=== PATIENT | female | born 1950 | race Caucasian/White ===

== ENCOUNTER → 2023-11-17 11:22 | Outpatient (REF) | payer MEDICARE, OTHER, SELFPAY | LOC: HWRAD 11:22 | PROVIDERS: ATTENDING PHYSICIAN Family Medicine | DX: Z78.0 Asymptomatic menopausal state (principal); Z12.31 Encounter for screening mammogram for malignant neoplasm of breast | CPT/HCPCS: 77063; 77067; 77080 ==

== ENCOUNTER 2024-03-13 14:27 | Inpatient (IN) | payer MEDICARE, OTHER, SELFPAY ==
[2024-03-13 08:51] VITALS: BP 113/83
--- NOTE | 2024-03-13 10:09 | ED.GENMED ---
History of Present Illness
General
Chief Complaint: Abdominal Symptoms
Source: patient and spouse
Exam Limitations: none
Time Seen by Provider: 03/13/24 09:33
Nursing documentation reviewed up to this point in time: agreed with
History of Present Illness
History of Present Illness:
73-year-old female presenting with concerns of nausea vomiting abdominal distention over the past 4 days. No diarrhea. Has been taking Zofran without relief. Tried enema to help with bowel movement which also did not help denies any chest pain
shortness of breath or fevers.
Past History
Past History
ED Past Medical History: Other (Allergies)
ED Past Surgical History: Cholecystectomy and Gynecological
Social History
Tobacco: Non-smoker
Alcohol: Occasional
Drug: None
Personal:
Living: with family
Review of Systems
Review of Systems
Allergies reviewed?: Yes
All Other Systems: ROS reviewed and negative except as documented in HPI and ROS
Phy Exam
Physical Exam
Physical Exam:
GENERAL: Alert , in no apparent distress
EYE: pupils equal and reactive
NECK: Supple, no significant adenopathy.
ENT: o/p clr, mmm.
CARDIAC: Regular rate and rhythm .
LUNGS: Clear breath sounds bilaterally, no acute respiratory distress, no wheezes/rales/rhonchi
ABDOMEN: Distended abdomen vaguely tender with palpation no peritoneal signs no guarding
NEUROLOGICAL: Alert and oriented, no focal neuro deficits
SKIN: Warm and dry, skin intact.
MUSCULOSKELETAL: No edema, well perfused.
PSYCH: Normal and appropriate interaction.
Course
Orders/Labs/Results
Orders:
Orders
03/13/24 10:10
CT Abd/Pel (IV only)-DH only Urgent
Comment:
Reason For Exam: diffuse abd pain, decreased BM
03/13/24 10:31
Complete Blood Count/With Diff Urgent
Comprehensive Metabolic Panel Urgent
Lactic Acid Urgent
Lipase Urgent
03/13/24 10:32
0.9% Sodium Chloride 1000 ml [Nss] 1,000 ml IV BOLUS
Ondansetron Injectable [Zofran] 4 mg IV NOW STA
03/13/24 11:17
Urinalysis Reflex To Culture Urgent
Date Specimen was Collected: 03/13/24
Time Specimen was Collected: 11:16
Urine Microscopic Reflex Cult Urgent
Urine Culture Urgent
SARA Source: U
Specimen Description:
Date Specimen was Collected: 03/13/24
Time Specimen was Collected: 11:16
Abnormal Lab Results
03/13/24 03/13/24
10:31 11:17
RBC 6.49 H 10^6/uL
(4.20-5.40)
MCV 61.6 L fL
(81.0-99.0)
MCH 19.7 L pg
(27.0-31.0)
MCHC 32.0 L g/dL
(33.0-37.0)
RDW 18.6 H %
(11.5-14.5)
MPV 11.1 H fL
(7.4-10.4)
Absolute Neuts (auto) 7.3 H 10^3/uL
(1.4-6.5)
Absolute Monos (auto) 1.0 H 10^3/uL
(0.1-0.6)
Neutrophils % 76.3 H %
(42.2-75.2)
Lymphocytes % 12.8 L %
(20.5-51.1)
Monocytes % 10.2 H %
(1.7-9.3)
Sodium 134 L mmol/L
(135-145)
Chloride 91 L mmol/L
(98-107)
BUN 41 H mg/dl
(7-17)
Glucose 129 H mg/dl
(70-99)
Total Bilirubin 2.6 H mg/dl
(0.2-1.3)
Urine Ketones 3+ A
(Negative)
Urine Bilirubin 1+ A
(Negative)
Leukocyte Esterase Rfl Trace A
(Negative)
Urine Bacteria (Reflex) Moderate A
(Negative)
03/13/24 10:31
03/13/24 10:31
Vital Signs
Initial and Last Documented VS:
Initial Vital Signs
Temp Pulse Resp BP Pulse Ox
98.0 F 96 16 113/83 98
03/13/24 08:51 03/13/24 08:51 03/13/24 08:51 03/13/24 08:51 03/13/24 08:51
Last Documented Vital Signs
Temp Pulse Resp BP Pulse Ox
98.0 F 87 16 114/78 98
03/13/24 08:51 03/13/24 11:17 03/13/24 12:00 03/13/24 11:17 03/13/24 11:17
MDM/Problems Addressed
MDM/Problems Addressed:
73-year-old female presenting with concerns of abdominal distention and 4 days of. Decrease in bowel movements no diarrhea. Took Zofran without relief here some vaguely reproducible discomfort to the abdomen diffusely. CT scan showing small bowel
obstruction with multiple dilated bowel loops. Plan to admit for further monitoring and surgical consultation.
*Critical Care Note
Total Time (30-74mins, 75-104mins- exclusive of procedures): Not Applicable
ED Attending Note
-
Portions of this chart may have been created with voice recognition software.� Occasional wrong word or��sound alike� substitutions may have occurred due to the inherent limitations of voice recognition software.
Discharge Plan
Departure
Patient Disposition: Admit
Date of Disposition: 03/13/24
Time of Disposition: 13:49
Admit to: Med/Surg
Admit to doctor: Sami
Presentation/result/management discussed w/ accepting MD/DO: Hospitalist
Patient with high blood pressure during this ER visit?: No
Condition: Good
Covid-19: Not Applicable
Discharge Problem:
SBO (small bowel obstruction)
Prescriptions:
No Action
multivitamin [Daily Multiple] 1 EACH tablet
1 tab PO DAILY
Referrals:
Reinaldo Romero MD [Family Provider] -
Interventions
Interventions:
*Risk Screen - Suicide Last Done: 03/13/24 08:51
*Neglect/Abuse Screening Last Done: 03/13/24 08:51
ED- Fall Risk Assessment Last Done: 03/13/24 10:50
*ED COVID-19 Vaccine History Last Done: 03/13/24 10:50
JG-Qahmcw-Ichbxzysop Assessment Last Done: 03/13/24 10:49
Discharge Date and Time
Print Language: NAMIBIAN
[2024-03-13] MEDS: ZOFRAN 4 MG IV (10:39)
[2024-03-13] MEDS: NSS 1000 IV ×2 (10:39→18:04)
[2024-03-13 10:50] VITALS: BMI 23.9
[2024-03-13 10:57] LABS: Lactic Acid 1.2 mmol/L (0.7-2.0)
[2024-03-13 10:59] LABS: ALT (SGPT) 20 U/L (0-35); AST (SGOT) 24 U/L (14-36); Albumin 4.7 g/dl (3.5-5.0); Alkaline Phosphatase 74 U/L (38-126); Blood Urea Nitrogen 41 mg/dl (7-17); Calcium 10.1 mg/dl (8.4-10.2); Carbon Dioxide 30 mmol/L (22-30); Chloride 91 mmol/L (98-107); Estimated Creatinine Clearance 47 ml/min; Glucose 129 mg/dl (70-99); Lipase 141 U/L (23-300); Potassium 4.4 mmol/L (3.5-5.1); Sodium 134 mmol/L (135-145); Total Bilirubin 2.6 mg/dl (0.2-1.3); Total Protein 7.5 g/dl (6.3-8.2); eGFR > 60.00
[2024-03-13 11:07] LABS: % Basophils 0.3 % (0-2); % Eosinophils 0.1 % (0-6); % Immature Granulocytes 0.3 % (0-0.5); % Lymphocytes 12.8 % (20.5-51.1); % Monocytes 10.2 % (1.7-9.3); % Neutrophils 76.3 % (42.2-75.2); Absolute Lymphocytes 1.2 10^3/uL (1.2-3.4); Absolute Neutrophils 7.3 10^3/uL (1.4-6.5); Hemoglobin 12.8 g/dL (12.0-16.0); Mean Corpuscular Hgb 19.7 pg (27.0-31.0); Mean Corpuscular Volume 61.6 fL (81.0-99.0); Mean Platelet Volume 11.1 fL (7.4-10.4); Nucleated Red Blood Cells % 0.2 %; Platelet Count 398 10^3/uL (130-400); Red Blood Cell Count 6.49 10^6/uL (4.20-5.40); Red Cell Dist. Width 18.6 % (11.5-14.5); White Blood Cell Count 9.6 10^3/uL (4.8-10.8)
[2024-03-13 11:17] VITALS: BP 114/78
[2024-03-13 11:45] LABS: Urine Albumin Trace (Neg - Trace); Urine Bilirubin 1+ (Negative); Urine Character Clear (Clear); Urine Color Yellow; Urine Glucose Negative (Negative); Urine Ketone 3+ (Negative); Urine Leukocyte Trace (Negative); Urine Nitrite Negative (Negative); Urine Occult Blood Negative (Negative); Urine Specific Gravity 1.025 (<1.030); Urine Urobilinogen Negative (Neg - 1+)
[2024-03-13 12:13] LABS: Urine Squamous Cell 16-20 /LPF (Few)
[2024-03-13 12:14] LABS: Urine Bacteria Moderate (Negative); Urine Red Blood Cell None Seen /HPF (0-2)
[2024-03-13 14:00] VITALS: BP 128/64
--- NOTE | 2024-03-13 14:01 | HPS.HSE ---
Family Physician
-
Family Physician: Reinaldo Romero
Chief Complaint
-
abdominal pain
History of Present Illness
73-year-old female past medical history of thalassemia minor, hyperlipidemia presenting with nausea and vomiting and abdominal distention and pain over the past 4 days. No diarrhea. Patient has been taking Zofran without relief. Her last bowel
movement was 5 days ago. Tried enema to help with bowel movement which did not help. She denies any chest pain or shortness of breath or fever.
She has a history of cholecystectomy, hysterectomy as well as right ovary resection in the past.
She denies smoking or alcohol use.
Medical History
Past Medical History
Past Medical History: Reports Other (thalassemia minor, hyperlipidemia)
Past Surgical History: Reports Other (cholecystectomy, hysterectomy as well as right ovary resection)
Social History
Tobacco: Non-smoker
Alcohol: None
Drug: None
Family History
Family History: Not pertinent
Allergies / Home Medications
Allergies reflects when Allergies were last updated in [facility].
Home Medications with original date entered in [facility]
Allergy/Medication List:
Allergies
Allergy/AdvReac Type Severity Reaction Status Date / Time
Sulfa (Sulfonamide Allergy Rash Verified 03/13/24 08:58
Antibiotics)
Home Medications
multivitamin (Daily Multiple tablet) 1 tab PO DAILY 01/14/13
Review of Systems
-
History Source: Patient
A 12 point ROS was completed and negative except as noted: Yes
Constitutional: Reports No Symptoms
EENT: Reports No Symptoms
Respiratory: Reports No Symptoms
Cardiac: Reports No Symptoms
Abdomen/GI: Reports See HPI
: Reports No Symptoms
Musculoskeletal: Reports No Symptoms
Skin: Reports No Symptoms
Neurological: Reports No Symptoms
Endocrine: Reports No Symptoms
Hematologic/Lymphatic: Reports No Symptoms
Psych: Reports No Symptoms
Physical Exam
Vital Signs
Vital Signs
Temp Pulse Resp BP Pulse Ox
98.0 F 87 16 114/78 98
03/13/24 08:51 03/13/24 11:17 03/13/24 12:00 03/13/24 11:17 03/13/24 11:17
Physical Exam
General: Well Developed, Well Nourished and No Apparent Distress
HEENT: NormoCephalic, Moist mucous membranes and Atraumatic
Respiratory: Clear
Cardiac: S1/S2 and Regular Rhythm; No Murmur or Rub
GI: Soft, Non Distended, Normal Bowel Sounds, Tender (diffusely) and Distended; No Organomegaly
Rectal: Deferred by Provider
Musculoskeletal: No Clubbing, No Cyanosis and No Edema
Skin: No Rash
Neuro: Nonfocal/grossly intact
Laboratory Results
-
03/13/24 10:31
03/13/24 10:31
Laboratory Results
Lactic Acid 1.2 mmol/L (0.7-2.0) 03/13/24 10:31
Total Bilirubin 2.6 mg/dl (0.2-1.3) H 03/13/24 10:31
AST 24 U/L (14-36) 03/13/24 10:31
ALT 20 U/L (0-35) 03/13/24 10:31
Alkaline Phosphatase 74 U/L (38-126) 03/13/24 10:31
Lipase 141 U/L (23-300) 03/13/24 10:31
Data Reviewed
-
Lab Data: Labs Reviewed by me
Old Records: Reviewed
Impression/Plan
-
IMPRESSION:
PLAN:
# Developing small bowel obstruction
# History of cholecystectomy, hysterectomy, right ovary resection
-CT abdomen pelvis shows multiple loops of small bowel suggesting developing small bowel obstruction, complete obstruction cannot be completely excluded. Transition point in the right lower quadrant. Mild amount of reactive fluid in the abdomen
pelvis
-N.p.o.
-IV fluids
-Zofran, Dilaudid as needed
-General Surgery consulted
Thalassemia minor
Hyperlipidemia
-hold statin
Full code
DVT prophylaxis�heparin
N.p.o.
--- NOTE | 2024-03-13 14:43 | CON.GS ---
Addendum entered and electronically signed by Kash Rosenbaum MD 03/14/24 10:26:
I saw and examined the patient independently on 03/14/2024.
The Art Conservator's note was reviewed and I agree with the note, assessment and plan except where noted below.
Comment: This is a 73-year-old female with a history of a right oophorectomy for benign cyst with concurrent appendectomy, subsequent total hysterectomy and left oophorectomy, and more recently a laparoscopic cholecystectomy. She presents with
nausea and vomiting since 03/08/2024 and worsening abdominal pain discomfort found to have small bowel obstruction, the first she has ever had. The NG tube was placed yesterday on 03/13/2024, with good symptomatic relief. Still no bowel
function.
No acute surgical intervention warranted at this time.
Will plan for a small bowel follow-through tomorrow
Out of bed and ambulate.
Okay for ice chips and chewing gum.
Check and replete lytes as needed.
All questions answered, patient agreeable to plan of care above.
General surgery will continue to follow
Original Note:
Medical History
-
Chief Complaint: Abdominal pain with n/v
History of Present Illness:
Ms Figueroa is a 73 yo female with a h/o right oophorectomy (for benign cyst) with concurrent appendectomy, subsequent total hysterectomy with left oophorectomy, and a laparoscopic cholecystectomy who presents with nausea and vomiting since
Thursday (03/08/24) with worsening abdominal distention and discomfort. She passed a BM on Thursday but has not had any stools since or flatus. She did try a suppository yesterday with some flatus with that but not since then. She has tried stool
softeners and enemas at home as she attributed her symptoms to constipation but without relief. She denies fevers or chills. She has not eaten since Thursday given intractable vomiting.
Past Medical History
Past Medical History: Hypercholesterolemia and Other (thalassemia minor)
Past Surgical History: Appendectomy (at time of right oophorectomy), Cholecystectomy and Gynecological (right oophorectomy, subsequent SHAUNA)
Social History
Tobacco: Non-Smoker
Alcohol: None
Personal:
Living: With Family
Family History
Family History: Reviewed & Not Pertinent
Allergies / Home Medications
Allergy/AdvReac Type Severity Reaction Status Date / Time
Sulfa (Sulfonamide Allergy Rash Verified 03/13/24 08:58
Antibiotics)
�Medication �Instructions �Recorded �Confirmed �Type
biotin 10,000 mcg chewable tablet 10,000 mcg PO DAILY 03/13/24 03/13/24 History
(Hair, Skin and Nails (biotin))
cholecalciferol (vitamin D3) 25 25 mcg PO HS 03/13/24 03/13/24 History
mcg (1,000 unit) tablet (Vitamin
D3)
docusate sodium 100 mg capsule 200 mg PO DAILYPRN PRN constipation 03/13/24 03/13/24 History
polyethylene glycol 3350 17 gram 8.5 g PO DAILYPRN PRN constipation 03/13/24 03/13/24 History
oral powder packet (Miralax)
rosuvastatin 5 mg tablet 5 mg PO DAILY 03/13/24 03/13/24 History
Review of Systems
-
History Source: Patient and Family
All other systems: Negative unless noted
A 10 point review of systems was completed, and was negative except as per HPI.
Physical Exam
Vital Signs
Temp Pulse Resp BP Pulse Ox
98.0 F 86 16 128/64 99
03/13/24 08:51 03/13/24 14:00 03/13/24 14:00 03/13/24 14:00 03/13/24 14:00
03/12/24 03/13/24 03/14/24
06:59 06:59 06:59
Actual Weight 61.235 kg
Body Mass Index (BMI) 23.9
Lab Results
03/13/24 10:31
03/13/24 10:
WBC 9.6 10^3/uL (4.8-10.8) 03/13/24 10:31
Hgb 12.8 g/dL (12.0-16.0) 03/13/24 10:
Hct 40.0 % (37.0-47.0) 03/13/24 10:
Plt Count 398 10^3/uL (130-400) 03/13/24 10:
Abs Immat Gran (auto) 0.0 10^3/uL (0-0.05) 03/13/24 10:
Neutrophils % 76.3 % (42.2-75.2) H 03/13/24 10:31
Physical Exam
General: Well Developed
HEENT: Normocephalic
GI: Soft, Tender (generalized, no rebound or guarding) and Distended (severe)
Skin: Warm and Dry
Neuro: Awake, Alert and AO x 3
Psych: Calm
Assessment / Plan
-
Ms Figueroa is a 73 yo female with a h/o right oophorectomy with appendectomy, subsequent total hysterectomy, and a lap peggy who presents with nausea and vomiting since Thursday with worsening abdominal discomfort and distention. Her last passage
of stool/flatus was Thursday as well. AFVSS. No leukocytosis. Significant distention present on exam with generalized tenderness which is not severe.
CT imaging reviewed with a significant amount of small bowel dilatation present up to a transition point in the right pelvis consistent with adhesive high grade SBO, some limitations in imaging given lack of PO contrast.
--Place NGT for decompression
--NPO with IVF
--IV analgesics/antiemetics
No plans for emergent surgery today, although she may require surgery if no improvement with decompression. Has been NPO for 4-5 days without improvement in symptoms with bowel rest alone
[2024-03-13 15:59] VITALS: BMI 23.0
[2024-03-13 16:00] VITALS: BP 112/78
[2024-03-13] MEDS: HURRICAINE SPRAY 1 APPLIC TOPICAL ×2 (17:08→18:08)
[2024-03-13] MEDS: ATIVAN 0.5 MG IV ×2 (17:08→22:21)
[2024-03-13] MEDS: PROTONIX IV 40 MG IV (18:07)
[2024-03-13] MEDS: HEPARIN 5000 UNITS SC (21:12)
[2024-03-13 23:55] VITALS: BP 123/82
[2024-03-14] MEDS: NSS 1000 IV (04:18)
[2024-03-14 05:47] LABS: % Basophils 0.3 % (0-2); % Eosinophils 0.6 % (0-6); % Immature Granulocytes 0.3 % (0-0.5); % Lymphocytes 17.3 % (20.5-51.1); % Monocytes 11.9 % (1.7-9.3); % Neutrophils 69.6 % (42.2-75.2); Absolute Eosinophils 0.1 10^3/uL (0-0.7); Absolute Lymphocytes 1.6 10^3/uL (1.2-3.4); Absolute Monocytes 1.1 10^3/uL (0.1-0.6); Absolute Neutrophils 6.4 10^3/uL (1.4-6.5); Hematocrit 34.3 % (37.0-47.0); Hemoglobin 10.8 g/dL (12.0-16.0); Mean Corp Hgb Conc. 31.5 g/dL (33.0-37.0); Mean Corpuscular Hgb 19.6 pg (27.0-31.0); Mean Corpuscular Volume 62.3 fL (81.0-99.0); Nucleated Red Blood Cells % 0 %; Platelet Count 301 10^3/uL (130-400); Red Blood Cell Count 5.51 10^6/uL (4.20-5.40); Red Cell Dist. Width 17.6 % (11.5-14.5); White Blood Cell Count 9.3 10^3/uL (4.8-10.8)
[2024-03-14 06:03] LABS: ALT (SGPT) 15 U/L (0-35); AST (SGOT) 20 U/L (14-36); Albumin 3.8 g/dl (3.5-5.0); Alkaline Phosphatase 68 U/L (38-126); Blood Urea Nitrogen 39 mg/dl (7-17); Carbon Dioxide 28 mmol/L (22-30); Chloride 98 mmol/L (98-107); Estimated Creatinine Clearance 60 ml/min; Glucose 103 mg/dl (70-99); Potassium 3.9 mmol/L (3.5-5.1); Sodium 136 mmol/L (135-145); Total Bilirubin 1.9 mg/dl (0.2-1.3); Total Protein 6.2 g/dl (6.3-8.2); eGFR > 60.00
[2024-03-14 08:05] VITALS: BP 113/62
[2024-03-14] MEDS: PROTONIX IV 40 MG IV (10:10)
[2024-03-14] MEDS: HEPARIN 5000 UNITS SC (10:10)
--- NOTE | 2024-03-14 13:31 | W.PN.HOSP.TC ---
Today's Communication/Plan
-
NGT
IVF
ABd X ray in am
Assessment / Plan
Assessment / Plan
73-year-old female presented with nausea and vomiting since 03/08/2024 along with abdominal pain..
CVS: S1-S2 normal
Chest: CTA B/L
Abdomen: Soft, NT , NO Bowel sounds present
Extremities: No edema,
EMPLOYMENT PROGRAM REPRESENTATIVE: Non focal exam
# Small bowel obstruction
History of previous surgeries and cholecystectomy, hysterectomy with left oophorectomy, appendectomy.
NG tube
N.p.o. with IV fluids
Surgery consulted and following
Ambulate as tolerated
# Mild hyponatremia-improved
# Prominence of the ascending aorta-CT of the chest ordered
# Hyperlipidemia- to hold statin as n.p.o.
# Thalassemia minor
# DVT prophylaxis-Lovenox
# Full code
Anticipated Discharge: Within 24 hours
Subjective/Interval History
-
Date of Service: March 14, 2024
Objective Data
-
Labs:
Laboratory Results
03/14/24
05:11
WBC 9.3
Hgb 10.8 L
Hct 34.3 L
Plt Count 301 D
Sodium 136
Potassium 3.9
Chloride 98
Carbon Dioxide 28
BUN 39 H
Creatinine 0.7
Glucose 103 H
Calcium 9.0
Total Bilirubin 1.9 H
AST 20
ALT 15
Alkaline Phosphatase 68
Vital Signs:
Vital Signs
Temp Pulse Resp BP Pulse Ox
98.9 F 77 20 113/62 94
03/14/24 08:05 03/14/24 08:05 03/14/24 08:05 03/14/24 08:05 03/14/24 08:05
I&O
03/13/24 03/14/24 03/15/24
06:59 06:59 06:59
Output Total 1000 / 1000
Balance -1000 / -1000
[2024-03-14] MEDS: NSS IV (14:20)
[2024-03-14] MEDS: D5LR 1000 IV (14:20)
[2024-03-14 15:52] VITALS: BP 113/63
[2024-03-14] MEDS: LOVENOX 40 MG SC (17:10)
--- NOTE | 2024-03-14 17:18 | CM ---
Alert awake oriented patient who lives with her Bakari who lives in a 1 story home with 3 steps to enter.She is independent in driving and in all activities of daily living.Offered VN she declined.Pt has a NG tube and NPO.
No adaptive devices
Never had VN/SNF
Pharmacy [facility]
PCP Dr Heather lepe
PLAN Home no needs
[2024-03-14 23:37] VITALS: BP 118/70
[2024-03-15] VITALS (16 sets, daily range): BP systolic 93–128; BP diastolic 48–75
[2024-03-15] MEDS: D5LR 1000 IV ×2 (05:36→18:38)
[2024-03-15 06:28] LABS: Blood Urea Nitrogen 25 mg/dl (7-17); Calcium 8.6 mg/dl (8.4-10.2); Carbon Dioxide 30 mmol/L (22-30); Chloride 102 mmol/L (98-107); Estimated Creatinine Clearance 70 ml/min; Glucose 127 mg/dl (70-99); Potassium 3.4 mmol/L (3.5-5.1); Sodium 140 mmol/L (135-145); eGFR > 60.00
[2024-03-15] MEDS: PROTONIX IV 40 MG IV (07:48)
[2024-03-15] MEDS: NSS (PRESERVATIVE FREE) 10 ML IV (08:29)
[2024-03-15 09:15] LABS: Magnesium 2.4 mg/dl (1.6-2.3)
[2024-03-15] MEDS: KCL 260 MEQ IV (09:28)
--- NOTE | 2024-03-15 11:09 | W.PN.GS2 ---
Today's Communication / Plan
-
-- Laparoscopic possible open KRISS
-- NPO, IVF, NGT decompression
-- Abx: Ancef prophylaxis
Assessment / Plan
-
Patient is a 73 yo F p/w SBO likely secondary to adhesions
AVSS
WBC remains normal
NGT output 1700
Repeat abdominal x-ray with continued significant dilation of the small bowel with no air within the colon
The natural history and pathophysiology of bowel obstructions was reviewed. Options for management were reviewed. Specifically, we discussed continued medical management with NGT decompression and further workup with a SBFT versus proceeding with
surgical intervention. Pros and cons of both approaches was discussed. Given her high NGT outputs and radiographic imaging is unlikely that she will tolerate a SBFT and given the fact that this process has been ongoing for approximately 1 week she
has had increased risk of needing operative management. Ms. Figueroa would like to proceed with surgical management.
Plan for a laparoscopic possible open lysis of adhesions, possible bowel resection. The procedure itself, as well as the risks, benefits, and alternatives was discussed. Specifically, we discussed the risks of bleeding, infection, injury to
surrounding structures (bowel), need for open procedure and potential hernia formation, ileus formation, and general anesthetic risks. Typical postprocedural recovery was discussed. All questions answered. Consent signed.
-- Laparoscopic possible open KRISS
-- NPO, IVF, NGT decompression
-- Abx: Ancef prophylaxis
-- Pain control: Tylenol and IV Dilaudid PRN
Subjective Data
-
Date of Service: March 15, 2024
Feels the same as yesterday. No worsening pain. Urged to pass flatus and have a bowel movement, but no flatus or BM in approximately 1 week. No nausea or vomiting. No fevers.
Objective Data
-
Intake and Output
03/14/24 03/15/24 03/16/24
06:59 06:59 06:59
Output Total 1000 / 1000 1700 / 1700
Balance -1000 / -1000 -1700 / -1700
Output:
Gastrointestinal tube output ( 999 170 / 1700
Total)
[place] Sump 999 1700 / 1700
Other:
Number of approximated MODERATE 1 2
amounts of urine
Vital Signs
Temp Pulse Resp BP Pulse Ox
97.8 F 85 18 128/75 100
03/15/24 07:52 03/15/24 07:52 03/15/24 07:52 03/15/24 07:52 03/15/24 07:52
Lab Results
03/14/24 05:11
03/15/24 05:31
Calcium 8.6 mg/dl (8.4-10.2) 03/15/24 05:31
Magnesium 2.4 mg/dl (1.6-2.3) H 03/15/24 05:31
Total Bilirubin 1.9 mg/dl (0.2-1.3) H 03/14/24 05:11
AST 20 U/L (14-36) 03/14/24 05:11
ALT 15 U/L (0-35) 03/14/24 05:11
Alkaline Phosphatase 68 U/L (38-126) 03/14/24 05:11
Total Protein 6.2 g/dl (6.3-8.2) L 03/14/24 05:11
Albumin 3.8 g/dl (3.5-5.0) 03/14/24 05:11
Physical Exam
-
Gen: NAD
HEENT: thin light bilious output, canister just changed
Abd: soft, diffuse mild tenderness, distended, tympanitic, non-peritoneal, prior incisions well healed
Patient has a carter catheter: No
Patient has a central line: No
--- NOTE | 2024-03-15 12:53 | W.PN.HOSP.TC ---
Today's Communication/Plan
-
For OR
Assessment / Plan
Assessment / Plan
73-year-old female presented with nausea and vomiting since 03/08/2024 along with abdominal pain..
CVS: S1-S2 normal
Chest: CTA B/L
Abdomen: Soft, NT , NO Bowel sounds present
Extremities: No edema,
CT Chest-No evidence of aortic dissection nor aneurysm. Recent plain film finding due to vascular shadows Progressed small bowel dilatation in the left upper quadrant with new adjacent probable reactive fluid. Findings suggest progressed
obstruction.Several small right upper lobe groundglass nodules concerning for developing infection. Clinical correlation recommended. Too small for PET imaging
Xray with SBO not changed
# Small bowel obstruction
History of previous surgeries and cholecystectomy, hysterectomy with left oophorectomy, appendectomy.
NG tube
N.p.o. with IV fluids
For OR today for KRISS
# Possible aspiration pneumonitis- NO fever . AB for OR
# Hypokalemia- Replace
# Mild hyponatremia-improved
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
# Hyperlipidemia- to hold statin as n.p.o.
# Thalassemia minor
# DVT prophylaxis-Lovenox
# Full code
D/W
D/W RN
D/W and daughter Xochitl [phone]
Anticipated Discharge: > 48 hours
Subjective/Interval History
-
Date of Service: March 15, 2024
Objective Data
-
Labs:
Laboratory Results
03/15/24
05:31
Sodium 140
Potassium 3.4 L
Chloride 102
Carbon Dioxide 30
BUN 25 H
Creatinine 0.6
Glucose 127 H
Calcium 8.6
Vital Signs:
Vital Signs
Temp Pulse Resp BP Pulse Ox
97.9 F 77 18 128/62 93
03/15/24 11:28 03/15/24 11:28 03/15/24 11:28 03/15/24 11:28 03/15/24 11:28
I&O
03/14/24 03/15/24 03/16/24
06:59 06:59 06:59
Output Total 1000 / 1000 1700 / 1700
Balance -1000 / -1000 -1700 / -1700
--- NOTE | 2024-03-15 14:53 | W.SUR.PREOP ---
Pre-Operative Surgical Note
-
I have examined this patient prior to the performance of the scheduled procedure.
The patient's condition is unchanged from the time of the current History and
Physical and the patient is able to undergo the scheduled procedure.
--- NOTE | 2024-03-15 17:23 | W.IMMPOSTOP ---
Surgical Immed Post Op Note
-
Primary Surgeon: Jose
Assisting Surgeon: RHETT Nava
Pre-op Diagnosis: SBO
Post-op Diagnosis: SBO
Procedure Performed: Laparoscopic assisted lysis of adhesions
Anesthesia Type: General
Specimen / Cultures: None
Estimated Blood Loss: 11 cc
Complications: None
Operative Findings:
1. Dense adhesions along prior midline, complete lysis laparoscopically
2. Transition point identified in ileum secondary to small bowel adhesion to omentum
3. Mini laparotomy (incorporating 12 mm port site) to assure bowel integrity and complete lysis
4. No serosal tears or enterotomies appreciated
[2024-03-15] MEDS: DILAUDID 0.5 MG IV (18:05)
[2024-03-15] MEDS: OFIRMEV 100 IV (18:05)
[2024-03-15] MEDS: DILAUDID 0.25 MG IV (18:18)
[2024-03-15] MEDS: TORADOL 10 MG IV (19:05)
[2024-03-15] MEDS: NORMOSOL-R/PLASMALYTE-A 1000 IV (19:28)
--- NOTE | 2024-03-15 20:11 | SUR.PHASEI ---
1930 - in pacu post op lap with tomi MONTERROSO, medicated for pain with Ofirmev, toradol and dilaudid - minimal discomfort and able to sleep. Chirstopher ZARATE check and draining green brown bile. no audible bowel sounds at this time. discharge to [address] [place] [address]
[2024-03-16] MEDS: OFIRMEV 100 IV ×3 (00:08→11:12)
[2024-03-16] MEDS: NORMOSOL-R/PLASMALYTE-A 1000 IV ×3 (00:09→20:22)
[2024-03-16 03:35] VITALS: BP 111/47
[2024-03-16 06:07] LABS: Hematocrit 30.3 % (37.0-47.0); Hemoglobin 9.4 g/dL (12.0-16.0); Mean Corpuscular Volume 64.5 fL (81.0-99.0); Platelet Count 244 10^3/uL (130-400); Red Cell Dist. Width 16.7 % (11.5-14.5); White Blood Cell Count 4.2 10^3/uL (4.8-10.8)
[2024-03-16 06:30] LABS: Blood Urea Nitrogen 17 mg/dl (7-17); Calcium 7.9 mg/dl (8.4-10.2); Carbon Dioxide 27 mmol/L (22-30); Chloride 103 mmol/L (98-107); Estimated Creatinine Clearance 70 ml/min; Glucose 104 mg/dl (70-99); Potassium 3.9 mmol/L (3.5-5.1); Sodium 140 mmol/L (135-145); eGFR > 60.00
[2024-03-16 07:10] VITALS: BP 105/58
--- NOTE | 2024-03-16 09:07 | W.PN.GS2 ---
Today's Communication / Plan
-
-- No major changes for today, awaiting consistent ROBF
Assessment / Plan
-
Patient is a 73 yo F p/w complete SBO secondary to adhesions. POD#1 s/p laparoscopic assisted KRISS
AVSS
Reactive leukopenia
NGT output 1600
Recovering well. No postoperative concerns. Clinical signs of early return of bowel function, continue to monitor.
-- NPO, IVF
-- NGT decompression, hopeful can remove tomorrow
-- Pain control: IV Tylenol, Toradol, IV Dilaudid
-- OOB as able
-- DVT: Lovenox
-- GI: PPI
Subjective Data
-
Date of Service: March 16, 2024
No major complaints. Pain well-controlled. No nausea or vomiting. Reports passing a small amount of flatus, with the sensation to pass more. No bowel movement. Afebrile. OOB to chair. Voiding.
Objective Data
-
Intake and Output
03/15/24 03/16/24 03/17/24
06:59 06:59 06:59
Intake Total 1600 / 1600 100 / 100
Output Total 1700 / 1700 680 / 680
Balance -1700 / -1700 920 / 920 100 / 100
Intake:
IV fluids (Total) 1600 / 1600
D5LR 200 / 200
Ofirmev 100 / 100
normosol 100 / 100
IV piggybacks 100 / 100
Amount instilled into GI Tube ( 0 / 0
Total)
[place] Sump 0 / 0
Output:
Gastrointestinal tube output ( 1700 / 1700 680 / 680
Total)
[place] Sump 1700 / 1700 680 / 680
Other:
Number of approximated MODERATE 2 2 1
amounts of urine
Vital Signs
Temp Pulse Resp BP Pulse Ox
98.2 F 73 16 105/58 97
03/16/24 07:10 03/16/24 07:10 03/16/24 07:10 03/16/24 07:10 03/16/24 07:10
Lab Results
03/16/24 04:45
03/16/24 04:45
Calcium 7.9 mg/dl (8.4-10.2) L 03/16/24 04:45
Magnesium 2.4 mg/dl (1.6-2.3) H 03/15/24 05:31
Total Bilirubin 1.9 mg/dl (0.2-1.3) H 03/14/24 05:11
AST 20 U/L (14-36) 03/14/24 05:11
ALT 15 U/L (0-35) 03/14/24 05:11
Alkaline Phosphatase 68 U/L (38-126) 03/14/24 05:11
Total Protein 6.2 g/dl (6.3-8.2) L 03/14/24 05:11
Albumin 3.8 g/dl (3.5-5.0) 03/14/24 05:11
Physical Exam
-
Gen: NAD
Abd: soft, mild tenderness, mild distension, non-peritoneal, incisions and dressing c/d/i
Patient has a carter catheter: No
Patient has a central line: No
[2024-03-16] MEDS: PROTONIX IV 40 MG IV (09:50)
[2024-03-16] MEDS: NSS (PRESERVATIVE FREE) 10 ML IV (09:51)
--- NOTE | 2024-03-16 10:43 | W.PN.HOSP.TC ---
Addendum entered and electronically signed by Nisha Syed MD 03/16/24 10:47:
Acute postoperative blood loss anemia-check iron studies
Original Note:
Today's Communication/Plan
-
Await return of bowel function.
Assessment / Plan
Assessment / Plan
73-year-old female presented with nausea and vomiting since 03/08/2024 along with abdominal pain..
CVS: S1-S2 normal
Chest: CTA B/L
Abdomen: Soft, has good BS
Extremities: No edema,
CT Chest-No evidence of aortic dissection nor aneurysm. Recent plain film finding due to vascular shadows Progressed small bowel dilatation in the left upper quadrant with new adjacent probable reactive fluid. Findings suggest progressed
obstruction.Several small right upper lobe groundglass nodules concerning for developing infection. Clinical correlation recommended. Too small for PET imaging
# Small bowel obstruction
History of previous surgeries and cholecystectomy, hysterectomy with left oophorectomy, appendectomy.
NG tube stil, there
Passing flatus
N.p.o. with IV fluids
S/P Laparoscopic assisted lysis of adhesions by 03/15/24
# Possible aspiration pneumonitis- NO fever . AB for OR
# Hypokalemia- Replaced
# Mild hyponatremia-improved
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
# Hyperlipidemia- to hold statin as n.p.o.
# Thalassemia minor
# DVT prophylaxis-Lovenox
# Full code
D/W RN
D/W and daughter Xochitl [phone] yesterday
Anticipated Discharge: 24 - 48 hours
Subjective/Interval History
-
Date of Service: March 16, 2024
Objective Data
-
Labs:
Laboratory Results
03/16/24
04:45
WBC 4.2 L
Hgb 9.4 L
Hct 30.3 L
Plt Count 244
Sodium 140
Potassium 3.9
Chloride 103
Carbon Dioxide 27
BUN 17
Creatinine 0.6
Glucose 104 H
Calcium 7.9 L
Vital Signs:
Vital Signs
Temp Pulse Resp BP Pulse Ox
98.2 F 73 16 105/58 97
03/16/24 07:10 03/16/24 07:10 03/16/24 07:10 03/16/24 07:10 03/16/24 07:10
I&O
03/15/24 03/16/24 03/17/24
06:59 06:59 06:59
Intake Total 1600 / 1600 100 / 100
Output Total 1700 / 1700 680 / 680
Balance -1700 / -1700 920 / 920 100 / 100
[2024-03-16 11:05] VITALS: BP 101/59
[2024-03-16 11:32] LABS: Iron 29 ug/dl (37-170)
[2024-03-16 11:41] LABS: Percent Saturation 11 % (20-50); Total Iron Binding Capacity 260 ug/dl (265-497)
--- NOTE | 2024-03-16 13:05 | PN.CDI ---
CDI
- -
CDI:
Physician Documentation Request
Admit Date: 03/13/24 14:27
Dear Doctor Jose,
03/15 patient underwent Laparoscopic-assisted lysis of adhesions for a small bowel obstruction.
Could you please further specify the type of small bowel obstruction:
Complete
partial
Other
Use of terms such as suspected, likely, concern for, or probable (associated with a specific diagnosis that is being evaluated, monitored, or treated as if it exists) are acceptable and can be coded in the inpatient setting, when documented at the
time of discharge.
Thank you,
Mary Hdz RN, BSN
CDI Specialist
tiger text
Please use your independent medical judgment in providing your response.
[2024-03-16 16:21] LABS: Vitamin D, 25-OH*** 29.2 ng/mL (30-80)
[2024-03-16 16:54] LABS: Vitamin B12 > 1000 pg/ml (239-931)
[2024-03-16] MEDS: LOVENOX 40 MG SC (18:11)
[2024-03-16] MEDS: TORADOL 10 MG IV (20:23)
[2024-03-16 23:05] VITALS: BP 118/66
[2024-03-17] MEDS: NORMOSOL-R/PLASMALYTE-A 1000 IV (05:47)
[2024-03-17 06:20] LABS: Blood Urea Nitrogen 14 mg/dl (7-17); Calcium 7.9 mg/dl (8.4-10.2); Carbon Dioxide 22 mmol/L (22-30); Chloride 105 mmol/L (98-107); Estimated Creatinine Clearance 70 ml/min; Glucose 69 mg/dl (70-99); Potassium 3.3 mmol/L (3.5-5.1); Sodium 140 mmol/L (135-145); eGFR > 60.00
[2024-03-17 06:26] LABS: Hematocrit 27.4 % (37.0-47.0); Hemoglobin 8.4 g/dL (12.0-16.0); Mean Corp Hgb Conc. 30.7 g/dL (33.0-37.0); Mean Corpuscular Hgb 19.7 pg (27.0-31.0); Mean Corpuscular Volume 64.3 fL (81.0-99.0); Platelet Count 243 10^3/uL (130-400); Red Blood Cell Count 4.26 10^6/uL (4.20-5.40); Red Cell Dist. Width 16.6 % (11.5-14.5); White Blood Cell Count 5.2 10^3/uL (4.8-10.8)
[2024-03-17 07:10] VITALS: BP 108/62
--- NOTE | 2024-03-17 07:26 | W.PN.GS2 ---
Today's Communication / Plan
-
-- DC NGT
-- Clears
-- Pain control: Tylenol, holding Toradol with anemia (can resume if stable), IV Dilaudid
-- MIVF, add K for repletion
-- DVT: Lovenox (holding given anemia)
-- Repeat CBC this afternoon
Assessment / Plan
-
Patient is a 73 yo F p/w complete SBO secondary to adhesions. POD#2 s/p laparoscopic assisted KRISS
AVSS
Normal WBC, drifting Hb, hypokalemia
NGT output 650
Acute anemia secondary to blood loss and hemodilution combined with chronic anemia with thalassemia minor. Baseline hemoglobin around 7. Her initial presentation of 12 was likely indicative of dehydration. She has drifted down to 8 today. Plan
to hold Toradol and Lovenox, will recheck this afternoon to confirm stability. No other clinical signs of blood loss (good blood pressures, stable heart rate, good urine output).
Recovering well. No major postoperative concerns. Clinical signs of early return of bowel function, plan to DC NGT today.
-- DC NGT
-- Clears
-- Pain control: Tylenol, holding Toradol with anemia (can resume if stable), IV Dilaudid
-- MIVF, add K for repletion
-- OOB as able
-- DVT: Lovenox (holding given anemia)
-- GI: PPI
-- Repeat CBC this afternoon
Subjective Data
-
Date of Service: March 17, 2024
Feels improved, slept overnight. Pain well-controlled. No nausea or vomiting. Passing flatus, no BM. Afebrile. Voiding. Feels weak, but denies any dizziness or lightheadedness. Of note, reports a history of thalassemia minor with a baseline
hemoglobin around 10, she previously has had issues needing transfusions during prior procedures.
Objective Data
-
Intake and Output
03/16/24 03/17/24 03/18/24
06:59 06:59 06:59
Intake Total 1600 / 1600 2600 / 2600
Output Total 680 / 680 450 / 450
Balance 920 / 920 2150 / 2150
Intake:
IV fluids (Total) 1600 / 1600 2400 / 2400
D5LR 200 / 200
Ofirmev 100 / 100
normosol 100 / 100
IV piggybacks 200 / 200
Amount instilled into GI Tube ( 0 / 0
Total)
[place] Sump 0 / 0
Output:
Gastrointestinal tube output ( 680 / 680 450 / 450
Total)
[place] Sump 680 / 680 450 / 450
Other:
Number of approximated MODERATE 2 3
amounts of urine
Vital Signs
Temp Pulse Resp BP Pulse Ox
98.8 F 67 16 118/66 95
03/16/24 23:05 03/16/24 23:05 03/16/24 23:05 03/16/24 23:05 03/16/24 23:05
Lab Results
03/17/24 04:31
Calcium 7.9 mg/dl (8.4-10.2) L 03/17/24 04:31
Magnesium 2.4 mg/dl (1.6-2.3) H 03/15/24 05:31
Total Bilirubin 1.9 mg/dl (0.2-1.3) H 03/14/24 05:11
AST 20 U/L (14-36) 03/14/24 05:11
ALT 15 U/L (0-35) 03/14/24 05:11
Alkaline Phosphatase 68 U/L (38-126) 03/14/24 05:11
Total Protein 6.2 g/dl (6.3-8.2) L 03/14/24 05:11
Albumin 3.8 g/dl (3.5-5.0) 03/14/24 05:11
Physical Exam
-
Gen: NAD
HENT: NGT with darker output, volume down
Abd: soft, NT/mild distension, no tympany, non-peritoneal, dressings c/d/i - no erythema, ecchymosis or drainage
Patient has a carter catheter: No
Patient has a central line: No
[2024-03-17] MEDS: D5/0.45%NSS with KCL 40 MEQ 1000 IV (07:56)
[2024-03-17] MEDS: NSS (PRESERVATIVE FREE) 10 ML IV (07:57)
[2024-03-17] MEDS: CRESTOR 5 MG PO (07:57)
[2024-03-17] MEDS: PROTONIX IV 40 MG IV (07:57)
[2024-03-17] MEDS: KCL 270 MEQ IV (09:16)
--- NOTE | 2024-03-17 12:36 | W.PN.HOSP.TC ---
Today's Communication/Plan
-
CBC
Clears
IV Iron
Assessment / Plan
Assessment / Plan
73-year-old female presented with nausea and vomiting since 03/08/2024 along with abdominal pain..
CVS: S1-S2 normal
Chest: CTA B/L
Abdomen: Soft, has good BS
Extremities: No edema,
CT Chest-No evidence of aortic dissection nor aneurysm. Recent plain film finding due to vascular shadows Progressed small bowel dilatation in the left upper quadrant with new adjacent probable reactive fluid. Findings suggest progressed
obstruction.Several small right upper lobe groundglass nodules concerning for developing infection. Clinical correlation recommended. Too small for PET imaging
# Small bowel obstruction
History of previous surgeries and cholecystectomy, hysterectomy with left oophorectomy, appendectomy.
Passing flatus
S/P Laparoscopic assisted lysis of adhesions by 03/15/24
NGT Out
Clears started
# Possible aspiration pneumonitis- NO fever . AB for OR
# Anemia- ? Acute RJ from OR vas dilutional.
Also ANN-MARIE- Start IV iron
Repat CBC later today
# Hypokalemia- Replace
# Mild hyponatremia-improved
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
# Hyperlipidemia- statin
# Thalassemia minor
# DVT prophylaxis-Lovenox
# Full code
D/W RN
D/W daughter Xochitl [phone] and updated
Anticipated Discharge: 24 - 48 hours
Subjective/Interval History
-
Date of Service: March 17, 2024
Objective Data
-
Labs:
Laboratory Results
03/17/24 03/17/24
04:31 12:26
WBC 5.2 Pending
Hgb 8.4 L Pending
Hct 27.4 L Pending
Plt Count 243 Pending
Sodium 140
Potassium 3.3 L
Chloride 105
Carbon Dioxide 22
BUN 14
Creatinine 0.5 L
Glucose 69 L
Calcium 7.9 L
Vital Signs:
Vital Signs
Temp Pulse Resp BP Pulse Ox
98.6 F 67 16 108/62 98
03/17/24 07:10 03/17/24 07:10 03/17/24 07:10 03/17/24 07:10 03/17/24 10:05
I&O
03/16/24 03/17/24 03/18/24
06:59 06:59 06:59
Intake Total 1600 / 1600 2600 / 2600
Output Total 680 / 680 450 / 450
Balance 920 / 920 2150 / 2150
[2024-03-17 12:54] LABS: Hematocrit 28.2 % (37.0-47.0); Hemoglobin 8.9 g/dL (12.0-16.0); Mean Corp Hgb Conc. 31.6 g/dL (33.0-37.0); Mean Corpuscular Hgb 19.7 pg (27.0-31.0); Mean Corpuscular Volume 62.4 fL (81.0-99.0); Platelet Count 279 10^3/uL (130-400); Red Blood Cell Count 4.52 10^6/uL (4.20-5.40); Red Cell Dist. Width 16.6 % (11.5-14.5); White Blood Cell Count 5.4 10^3/uL (4.8-10.8)
[2024-03-17] MEDS: FERRLECIT 110 MG IV (13:49)
[2024-03-17 15:40] VITALS: BP 107/77
--- NOTE | 2024-03-17 16:25 | CM ---
Chart reviewed
NGT d/c'ed
Clears
CM will follow for discharge needs
Plan - anticipate home no needs
[2024-03-17 23:24] VITALS: BP 113/60
[2024-03-18] MEDS: D5/0.45%NSS with KCL 40 MEQ 1000 IV (01:55)
[2024-03-18 06:22] LABS: Hematocrit 28.1 % (37.0-47.0); Hemoglobin 8.8 g/dL (12.0-16.0); Mean Corp Hgb Conc. 31.3 g/dL (33.0-37.0); Mean Corpuscular Hgb 19.8 pg (27.0-31.0); Mean Corpuscular Volume 63.1 fL (81.0-99.0); Mean Platelet Volume 10.9 fL (7.4-10.4); Platelet Count 268 10^3/uL (130-400); Red Blood Cell Count 4.45 10^6/uL (4.20-5.40); Red Cell Dist. Width 16.3 % (11.5-14.5); White Blood Cell Count 5.2 10^3/uL (4.8-10.8)
[2024-03-18 06:50] LABS: Blood Urea Nitrogen 6 mg/dl (7-17); Calcium 8.1 mg/dl (8.4-10.2); Carbon Dioxide 27 mmol/L (22-30); Chloride 104 mmol/L (98-107); Estimated Creatinine Clearance 70 ml/min; Glucose 110 mg/dl (70-99); Potassium 3.9 mmol/L (3.5-5.1); Sodium 136 mmol/L (135-145); eGFR > 60.00
--- NOTE | 2024-03-18 06:56 | W.PN.GS2 ---
Today's Communication / Plan
-
-- LRD
-- Pain control: Tylenol, Toradol (resume with Hb stable), Tramadol, IV Dilaudid
-- DC IVF
-- Tentative plan for DC tomorrow
Assessment / Plan
-
Patient is a 73 yo F p/w complete SBO secondary to adhesions. POD#3 s/p laparoscopic assisted KRISS
AVSS
Normal WBC, Hb stable on recheck, hypokalemia repleted
NGT output 650
Acute anemia secondary to blood loss and hemodilution combined with chronic anemia with thalassemia minor. Baseline hemoglobin around 10. Her initial presentation of 12 was likely indicative of dehydration. She has drifted down to 8 today. Plan
to hold Toradol and Lovenox, will recheck this afternoon to confirm stability. No other clinical signs of blood loss (good blood pressures, stable heart rate, good urine output).
Recovering well. No major postoperative concerns. Clinical signs of early return of bowel function, plan to advance diet.
-- LRD
-- Pain control: Tylenol, Toradol (resume with Hb stable), Tramadol, IV Dilaudid
-- DC IVF
-- OOB as able
-- DVT: Lovenox (holding given anemia)
-- GI: None needed
-- Tentative plan for DC tomorrow
Subjective Data
-
Date of Service: March 18, 2024
No major complaints. Feels tired. Controlled. No nausea vomiting. Some flatus and loose stools. Voiding. Afebrile. Ambulating. Denies dizziness or lightheadedness.
Objective Data
-
Intake and Output
03/16/24 03/17/24 03/18/24
06:59 06:59 06:59
Intake Total 1600 / 1600 2600 / 2600 1520 / 1520
Output Total 680 / 680 450 / 450
Balance 920 / 920 2150 / 2150 1520 / 1520
Intake:
Oral fluids 240 / 240
IV fluids (Total) 1600 / 1600 2400 / 2400 900 / 900
D5LR 200 / 200
Ofirmev 100 / 100
normosol 100 / 100
IV piggybacks 200 / 200 380 / 380
Amount instilled into GI Tube ( 0 / 0
Total)
[place] Sump 0 / 0
Output:
Gastrointestinal tube output ( 680 / 680 450 / 450
Total)
[place] Sump 680 / 680 450 / 450
Other:
Number of approximated SMALL 2
amounts of urine
Number of approximated MODERATE 2 3 1
amounts of urine
Number of approximated LARGE 1
amounts of urine
Vital Signs
Temp Pulse Resp BP Pulse Ox
98.1 F 68 16 113/60 97
03/17/24 23:24 03/17/24 23:24 03/17/24 23:24 03/17/24 23:24 03/17/24 23:24
Lab Results
03/18/24 04:44
03/18/24 04:44
Calcium 8.1 mg/dl (8.4-10.2) L 03/18/24 04:44
Magnesium 2.0 mg/dl (1.6-2.3) 03/18/24 04:44
Total Bilirubin 1.9 mg/dl (0.2-1.3) H 03/14/24 05:11
AST 20 U/L (14-36) 03/14/24 05:11
ALT 15 U/L (0-35) 03/14/24 05:11
Alkaline Phosphatase 68 U/L (38-126) 03/14/24 05:11
Total Protein 6.2 g/dl (6.3-8.2) L 03/14/24 05:11
Albumin 3.8 g/dl (3.5-5.0) 03/14/24 05:11
Physical Exam
-
Gen; NAD
Abd: soft, minimal tenderness, ND, non-peritoneal, incisions c/d/i - no erythema, ecchymosis or drainage
Patient has a carter catheter: No
Patient has a central line: No
[2024-03-18 07:37] VITALS: BP 128/67
[2024-03-18] MEDS: NSS (PRESERVATIVE FREE) IV (09:05)
[2024-03-18] MEDS: PROTONIX IV IV (09:05)
[2024-03-18] MEDS: CRESTOR PO (09:07)
--- NOTE | 2024-03-18 10:48 | W.PN.HOSP.TC ---
Today's Communication/Plan
-
Diet advanced
Plan noted for discharge tomorrow
Assessment / Plan
Assessment / Plan
73-year-old female presented with nausea and vomiting since 03/08/2024 along with abdominal pain.
CVS: S1-S2 normal
Chest: CTA B/L
Abdomen: Soft, has good BS
Extremities: No edema,
CT Chest-No evidence of aortic dissection nor aneurysm. Recent plain film finding due to vascular shadows Progressed small bowel dilatation in the left upper quadrant with new adjacent probable reactive fluid. Findings suggest progressed
obstruction.Several small right upper lobe groundglass nodules concerning for developing infection. Clinical correlation recommended. Too small for PET imaging
# Small bowel obstruction
History of previous surgeries and cholecystectomy, Hysterectomy with left Oophorectomy, Appendectomy.
S/P Laparoscopic assisted lysis of adhesions by 03/15/24
NGT Out,Had BMS
Tolerated clears diet advance to low residue diet today
# Possible aspiration pneumonitis- NO fever .
# Anemia- ? Acute RJ from OR vas dilutional.
Also ANN-MARIE- Started IV iron
CBC stable
# Hypokalemia- Replaced
# Mild hyponatremia-improved
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
# Hyperlipidemia- statin
# Thalassemia minor
# DVT prophylaxis-Lovenox
# Full code
D/W RN
D/W daughter Xochitl [phone] and updated 03/17/2024
Anticipated Discharge: Within 24 hours
Subjective/Interval History
-
Date of Service: March 18, 2024
Objective Data
-
Labs:
Laboratory Results
03/18/24
04:44
WBC 5.2
Hgb 8.8 L
Hct 28.1 L
Plt Count 268
Sodium 136
Potassium 3.9
Chloride 104
Carbon Dioxide 27
BUN 6 L
Creatinine 0.5 L
Glucose 110 H
Calcium 8.1 L
Vital Signs:
Vital Signs
Temp Pulse Resp BP Pulse Ox
98.6 F 72 16 128/67 97
03/18/24 07:37 03/18/24 07:37 03/18/24 07:37 03/18/24 07:37 03/18/24 07:37
I&O
03/17/24 03/18/24 03/19/24
06:59 06:59 06:59
Intake Total 2600 / 2600 1520 / 1520
Output Total 450 / 450
Balance 2150 / 2150 1520 / 1520
--- NOTE | 2024-03-18 11:26 | CM ---
CM following re: discharge planning.
Reviewed pt's chart, met with pt.
Pt is POD#3 s/p laparoscopic assisted KRISS. per Surgery, pt most likely will be discharged home tomorrow.
Pt is aware of a possible discharge tomorrow, expressed her agreement. pt stated she did not use any mobile devices [employer] and she is not sure she can walk independently.
PT and OT evaluations requested to determine a level of care at discharge.
IMM reviewed, placed on chart, pt has a copy.
D/C plan: home with anticipated no needs vs VN. Awaiting PT/OT evaluations and recommendations. Pt stated her will transport home at discharge.
CM will follow with discharge plan updates as hospitalization progresses
[2024-03-18] MEDS: FERRLECIT 110 MG IV (15:08)
[2024-03-18 15:49] VITALS: BP 123/72
[2024-03-18] MEDS: LOVENOX 40 MG SC (17:12)
[2024-03-18 23:13] VITALS: BP 121/64
[2024-03-19 07:10] VITALS: BP 140/77
[2024-03-19 07:59] LABS: Hematocrit 28.8 % (37.0-47.0); Hemoglobin 9.1 g/dL (12.0-16.0); Mean Corp Hgb Conc. 31.6 g/dL (33.0-37.0); Mean Corpuscular Hgb 19.7 pg (27.0-31.0); Mean Corpuscular Volume 62.5 fL (81.0-99.0); Platelet Count 295 10^3/uL (130-400); Red Blood Cell Count 4.61 10^6/uL (4.20-5.40); Red Cell Dist. Width 16.4 % (11.5-14.5); White Blood Cell Count 5.5 10^3/uL (4.8-10.8)
[2024-03-19] MEDS: PROTONIX IV 40 MG IV (08:00)
[2024-03-19] MEDS: CRESTOR PO (08:02)
[2024-03-19 08:25] LABS: Blood Urea Nitrogen 4 mg/dl (7-17); Calcium 8.3 mg/dl (8.4-10.2); Carbon Dioxide 27 mmol/L (22-30); Chloride 104 mmol/L (98-107); Estimated Creatinine Clearance 70 ml/min; Glucose 96 mg/dl (70-99); Potassium 3.8 mmol/L (3.5-5.1); Sodium 136 mmol/L (135-145); eGFR > 60.00
--- NOTE | 2024-03-19 10:45 | W.PN.HOSP.TC ---
Today's Communication/Plan
-
Discharge after seen by surgeon
Assessment / Plan
Assessment / Plan
73-year-old female presented with nausea and vomiting since 03/08/2024 along with abdominal pain.
CVS: S1-S2 normal
Chest: CTA B/L
Abdomen: Soft, has good BS
Extremities: No edema,
CT Chest-No evidence of aortic dissection nor aneurysm. Recent plain film finding due to vascular shadows Progressed small bowel dilatation in the left upper quadrant with new adjacent probable reactive fluid. Findings suggest progressed
obstruction.Several small right upper lobe groundglass nodules concerning for developing infection. Clinical correlation recommended. Too small for PET imaging
# Small bowel obstruction
History of previous surgeries and cholecystectomy, Hysterectomy with left Oophorectomy, Appendectomy.
S/P Laparoscopic assisted lysis of adhesions by 03/15/24
NGT Out,Had BMS
Tolerated low residue diet
# Possible aspiration pneumonitis- NO fever .
# Anemia- ? Acute RJ from OR vas dilutional.
Also ANN-MARIE- Started IV iron
CBC stable
# Hypokalemia- Replaced
# Mild hyponatremia-improved
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
# Hyperlipidemia- statin
# Thalassemia minor
# DVT prophylaxis-Lovenox
# Full code
D/W RN
D/W daughter Xochitl [phone] and updated 03/17/2024
Anticipated Discharge: Today
Subjective/Interval History
-
Date of Service: March 19, 2024
Objective Data
-
Labs:
Laboratory Results
03/19/24
06:55
WBC 5.5
Hgb 9.1 L
Hct 28.8 L
Plt Count 295
Sodium 136
Potassium 3.8
Chloride 104
Carbon Dioxide 27
BUN 4 L
Creatinine 0.5 L
Glucose 96
Calcium 8.3 L
Vital Signs:
Vital Signs
Temp Pulse Resp BP Pulse Ox
98.4 F 70 14 140/77 97
03/19/24 07:10 03/19/24 07:10 03/19/24 07:10 03/19/24 07:10 03/19/24 07:10
I&O
03/18/24 03/19/24 03/20/24
06:59 06:59 06:59
Intake Total 1520 / 1520 1680 / 1680
Balance 1520 / 1520 1680 / 1680
--- NOTE | 2024-03-19 10:47 | W.DS.TRANS ---
Addendum entered and electronically signed by Nisha Syed MD 03/20/24 09:32:
Dictation- [id number]
Original Note:
DC Summary - Academic Department Chair
-
Discharge Instructions:
Discharge Diagnosis/Procedures SBO s/p lysis of adhesions
Hypokalemia
High cholesterol
Diet Low Fiber
Additional Diets Following low fiber diet for the next 2 weeks,
will discuss advancement to regular and
outpatient follow-up
Activity No strenuous activity
Additional Activity No heavy lifting (>20 lbs) for 4 weeks
postoperatively
Driving Restrictions No driving if too sore or narcotics
Bathing Restrictions OK to Shower
Wound Care Keep incision clean and dry. Steri-Strips will
flake off in 2 to 3 weeks. Stitches will
dissolve. Use ice to the abdomen to reduce any
bruising or swelling.
Instructions:
Stand-Alone Forms:
Changes to Home Medications: Yes
Discharge Medications:
DC Medications w/original date entered in [employer]
biotin 10,000 mcg chewable tablet (Hair, Skin and Nails (biotin)) 10,000 mcg PO DAILY Supplement 03/13/24
cholecalciferol (vitamin D3) 25 mcg (1,000 unit) tablet (Vitamin D3) 25 mcg PO HS Supplement 03/13/24
docusate sodium 100 mg capsule 200 mg PO DAILYPRN PRN constipation 03/13/24
polyethylene glycol 3350 17 gram oral powder packet (Miralax) 8.5 g PO DAILYPRN PRN constipation 03/13/24
rosuvastatin 5 mg tablet 5 mg PO DAILY High Cholesterol 03/13/24
ferrous sulfate 325 mg (65 mg iron) tablet 325 mg PO DAILY anemia #30 tabs 03/18/24
Home Medication Changes
new
ferrous sulfate 325 mg (65 mg iron) tablet 325 mg PO DAILY anemia #30 tabs 03/18/24
Pending Results: No
--- NOTE | 2024-03-19 11:19 | CM ---
Pt for discharge today
Has ride home
Given IMM
Plan - home no needs
[2024-03-19 12:22] VITALS: BP 138/67
--- NOTE | 2024-03-19 12:56 | W.PN.GS2 ---
Addendum entered and electronically signed by Morgan Hernandez MD 03/19/24 17:52:
I saw and examined the patient.
The RESIDENT ADVISOR's note was reviewed and I agree with the note.
Comment:
No issues overnight, tolerating diet with bowel function, pain controlled.
AFVSS, ABD soft, nondistended, appropriately tender; incisions well-approximated without erythema or drainage
WBC 5.5, Hb stable, CR 0.5
� Continue low residue
� Continue pain control with Tylenol, Toradol, tramadol as needed
� Continue DVT PPx
� Okay for discharge from surgical standpoint; appreciate hospitalist
Original Note:
Today's Communication / Plan
-
dispo planning
Assessment / Plan
-
Patient is a 73 yo F p/w complete SBO secondary to adhesions. POD#4 s/p laparoscopic assisted KRISS
AVSS
Labs stable, electrolytes wnl
Tolerating diet
Recovering well. No major postoperative concerns. Clinical signs of early return of bowel function, tolerating LRD
-- LRD
-- Analgesics prn
-- OOB as able
Ok for d/c from surgical standpoint
Subjective Data
-
Date of Service: March 19, 2024
Patient seen and examined at bedside with Dr. Hernandez. Denies n/v. Tolerating solid food. Passing flatus and several loose Bm's. minimal discomfort at incisional site.
Objective Data
-
Intake and Output
03/18/24 03/19/24 03/20/24
06:59 06:59 06:59
Intake Total 1520 / 1520 1680 / 1680
Balance 1520 / 1520 1680 / 1680
Intake:
Oral fluids 240 / 240 1680 / 1680
IV fluids (Total) 900 / 900
IV piggybacks 380 / 380
Other:
Number of approximated SMALL 2
amounts of urine
Number of approximated MODERATE 1 2
amounts of urine
Number of approximated LARGE 1
amounts of urine
Number of unmeasured liquid
stools
Rectum 3
Vital Signs
Temp Pulse Resp BP Pulse Ox
98.2 F 76 16 138/67 97
03/19/24 12:22 03/19/24 12:22 03/19/24 12:22 03/19/24 12:22 03/19/24 12:22
Lab Results
03/19/24 06:55
03/19/24 06:55
Calcium 8.3 mg/dl (8.4-10.2) L 03/19/24 06:55
Magnesium 2.0 mg/dl (1.6-2.3) 03/18/24 04:44
Total Bilirubin 1.9 mg/dl (0.2-1.3) H 03/14/24 05:11
AST 20 U/L (14-36) 03/14/24 05:11
ALT 15 U/L (0-35) 03/14/24 05:11
Alkaline Phosphatase 68 U/L (38-126) 03/14/24 05:11
Total Protein 6.2 g/dl (6.3-8.2) L 03/14/24 05:11
Albumin 3.8 g/dl (3.5-5.0) 03/14/24 05:11
Physical Exam
-
Gen; NAD
Abd: soft, minimal tenderness, ND, non-peritoneal, incisions c/d/i - no erythema, ecchymosis or drainage
Patient has a carter catheter: No
Patient has a central line: No
== END 2024-03-19 13:01 | disposition home or self-care (01) | DRG 336 ==
LOC: 2 SOUTH 14:27
PROVIDERS: Physician Assistant; Radiology Diagnostic Radiology; Surgery; ADMITTING PHYSICIAN Hospitalist; ATTENDING PHYSICIAN Hospitalist; EMERGENCY PHYSICIAN Emergency Medicine; FAMILY PHYSICIAN Family Medicine; OTHER PHYSICIAN Surgery
PROC: 0D9670Z Drainage of Stomach with Drainage Device, Via Natural or Artificial Opening (ICD-10-PCS; 2024-03-13)
PROC: 0DN80ZZ Release Small Intestine, Open Approach (ICD-10-PCS; 2024-03-15)
PROC: 0DJD4ZZ Inspection of Lower Intestinal Tract, Percutaneous Endoscopic Approach (ICD-10-PCS; 2024-03-15)
DX: K56.52 Intestinal adhesions [bands] with complete obstruction (principal); D62 Acute posthemorrhagic anemia; E87.1 Hypo-osmolality and hyponatremia; E78.00 Pure hypercholesterolemia, unspecified; E87.6 Hypokalemia; D56.3 Thalassemia minor; Z88.2 Allergy status to sulfonamides; Z90.49 Acquired absence of other specified parts of digestive tract; Z90.710 Acquired absence of both cervix and uterus; Z90.721 Acquired absence of ovaries, unilateral; Z79.899 Other long term (current) drug therapy; Z53.31 Laparoscopic surgical procedure converted to open procedure
CPT/HCPCS: 71045; 71260; 74018; 74019; 74177; 80048; 80053; 81003; 81015; 82306; 82607; 82728; 83540; 83550; 83605; 83690; 83735; 85025; 85027; 87086; 96361; 96374; 97161; 99285; C1776; J2916; Q9967

== ENCOUNTER 2024-03-24 00:54 | Inpatient (IN) | payer MEDICARE, OTHER, SELFPAY ==
[2024-03-23 17:31] VITALS: BMI 23.8
[2024-03-23 17:39] VITALS: BP 106/66
[2024-03-23 20:13] VITALS: BP 98/56
--- NOTE | 2024-03-23 20:30 | ED.GENMED ---
History of Present Illness
General
Chief Complaint: Abdominal Symptoms
Time Seen by Provider: 03/23/24 19:58
History of Present Illness
History of Present Illness:
Patient is a 73-year-old woman presenting to the emergency department with abdominal pain. Per chart review patient was discharged on March 19 after she was admitted for a small bowel obstruction that was managed initially conservatively and
required laparoscopic surgery. Patient states that she was feeling well up until yesterday. She developed some vague abdominal pain. She last had a bowel movement this morning. She states that she still passing gas though less frequently. She
is slightly nauseous. No fevers or chills. No recent sick contacts. She did state that she was having looser stools a few days ago but they have been more formed lately. She does state that her abdomen has been more distended since the surgery.
Past History
Past History
ED Past Medical History: Other (Allergies)
ED Past Surgical History: Cholecystectomy and Gynecological
Social History
Tobacco: Non-smoker
Alcohol: Occasional
Drug: None
Personal:
Living: with family
Phy Exam
Physical Exam
Physical Exam:
GENERAL: in no acute distress
HEENT: normocephalic, extraocular movements intact, moist oral mucosa
NECK: normal inspection
RESPIRATORY: no respiratory distress, clear to auscultation bilaterally
CARDIOVASCULAR: regular rate and rhythm
ABDOMEN/: soft, diffusely tender, mildly distended, no rebound or guarding
EXTREMITIES: non-tender, no edema/swelling
NEUROLOGIC: awake and alert, moves all extremities
SKIN: warm
Course
Orders/Labs/Results
Orders:
Orders
03/23/24 20:29
CT Abd/pel W Iv And Oral Contr Urgent
Comment:
Reason For Exam: abdominal pain, recent SBO s/p surgery
Iohexol [Omnipaque] See Protocol PO NOW STA
Ondansetron Injectable [Zofran] 4 mg IV NOW STA
03/23/24 20:30
Lactated Ringers [Lr] 1,000 ml IV BOLUS
03/23/24 20:32
Complete Blood Count/With Diff Urgent
Comprehensive Metabolic Panel Urgent
Direct Bilirubin Urgent
Comment: ADD ON
03/23/24 20:35
HYDROmorphone [Dilaudid] 0.25 mg IV NOW STA
03/23/24 20:48
Urinalysis Reflex To Culture Urgent
Date Specimen was Collected: 03/23/24
Time Specimen was Collected: 20:42
Urine Microscopic Reflex Cult Urgent
Urine Culture Urgent
SARA Source: U
Specimen Description:
Date Specimen was Collected: 03/23/24
Time Specimen was Collected: 20:42
03/23/24 21:00
Add On- LAB Urgent
Tests Added?: direct billirubin
03/23/24 22:47
Ondansetron Injectable [Zofran] 4 mg IV NOW STA
Abnormal Lab Results
03/23/24 03/23/24
20:32 20:48
WBC 16.2 H 10^3/uL
(4.8-10.8)
RBC 6.14 H 10^6/uL
(4.20-5.40)
MCV 60.9 L fL
(81.0-99.0)
MCH 19.5 L pg
(27.0-31.0)
MCHC 32.1 L g/dL
(33.0-37.0)
RDW 18.9 H %
(11.5-14.5)
Plt Count 467 H D 10^3/uL
(130-400)
Abs Immat Gran (auto) 0.2 H 10^3/uL
(0-0.05)
Absolute Neuts (auto) 14.8 H 10^3/uL
(1.4-6.5)
Absolute Lymphs (auto) 0.8 L 10^3/uL
(1.2-3.4)
Immature Gran % 0.9 H %
(0-0.5)
Neutrophils % 91.5 H %
(42.2-75.2)
Lymphocytes % 4.8 L %
(20.5-51.1)
Chloride 97 L mmol/L
(98-107)
Creatinine 0.4 L mg/dL
(0.6-1.0)
Glucose 132 H mg/dl
(70-99)
Calcium 11.4 H mg/dl
(8.4-10.2)
Total Bilirubin 2.0 H mg/dl
(0.2-1.3)
Direct Bilirubin 0.5 H mg/dl
(0.0-0.4)
ALT 43 H U/L
(0-35)
Urine Ketones 3+ A
(Negative)
Urine Bilirubin 2+ A
(Negative)
Urine Urobilinogen 2+ A
(Neg - 1+)
Leukocyte Esterase Rfl 1+ A
(Negative)
Urine Bacteria (Reflex) Few A
(Negative)
Urine Albumin (Reflex) 2+ A
(Neg - Trace)
03/23/24 20:32
03/23/24 20:32
Vital Signs
Initial and Last Documented VS:
Initial Vital Signs
Temp Pulse Resp BP Pulse Ox
98.4 F 99 16 106/66 97
03/23/24 17:39 03/23/24 17:39 03/23/24 17:39 03/23/24 17:39 03/23/24 17:39
Last Documented Vital Signs
Temp Pulse Resp BP Pulse Ox
98.4 F 99 16 111/75 96
03/23/24 17:39 03/23/24 17:39 03/23/24 17:39 03/23/24 21:01 03/23/24 21:31
MDM/Problems Addressed
Differential Diagnosis Includes:
Patient is a 73-year-old woman presenting to the emergency department with abdominal pain with recent surgery for small bowel obstruction. Vitals are notable for blood pressure in the low 100s and exam does show soft slightly distended abdomen with
diffuse tenderness. Concern for recurrent obstruction versus perforated viscus versus. Will check blood work and obtain CT scan. Will give Zofran and fluids.
*Critical Care Note
Total Time (30-74mins, 75-104mins- exclusive of procedures): Not Applicable
Update Note
Update Note:
Blood work does show slightly elevated white count. On reassessment pain has improved after the Dilaudid. Patient was sent over for CT scan. On my interpretation she does have a small bowel obstruction. I did discuss with radiology was in
agreement. I did update surgical team who recommended hospitalist admission.
ED Attending Note
-
Portions of this chart may have been created with voice recognition software.� Occasional wrong word or��sound alike� substitutions may have occurred due to the inherent limitations of voice recognition software.
Discharge Plan
Departure
Patient Disposition: Admit
Date of Disposition: 03/23/24
Time of Disposition: 23:33
Presentation/result/management discussed w/ accepting MD/DO: Hospitalist
Discharge Problem:
SBO (small bowel obstruction)
Prescriptions:
No Action
polyethylene glycol 3350 [Miralax] 17 gram Powder In Packet
8.5 g PO DAILYPRN PRN (Reason: constipation)
docusate sodium 100 mg Capsule
200 mg PO DAILYPRN PRN (Reason: constipation)
rosuvastatin 5 mg Tablet
5 mg PO DAILY
cholecalciferol (vitamin D3) [Vitamin D3] 25 mcg (1,000 unit) Tablet
25 mcg PO HS
Hair, Skin and Nails (biotin) 10,000 mcg Tablet,Chewable
10,000 mcg PO DAILY
ferrous sulfate 325 mg (65 mg iron) tablet
325 mg PO DAILY Qty: 30 0RF
Referrals:
Reinaldo Romero MD [Family Provider] -
Interventions
Interventions:
*Risk Screen - Suicide Last Done: 03/23/24 17:39
*General Assessment Last Done: 03/23/24 20:31
*Neglect/Abuse Screening Last Done: 03/23/24 17:39
*ED COVID-19 Vaccine History Last Done: 03/23/24 20:31
EU-Jnmlel-Czfzrebikh Assessment Last Done: 03/23/24 20:58
Discharge Date and Time
Print Language: TURKMEN
[2024-03-23] MEDS: OMNIPAQUE 50 ML PO (20:42)
[2024-03-23 20:43] LABS: % Basophils 0.2 % (0-2); % Eosinophils 0.1 % (0-6); % Immature Granulocytes 0.9 % (0-0.5); % Lymphocytes 4.8 % (20.5-51.1); % Monocytes 2.5 % (1.7-9.3); % Neutrophils 91.5 % (42.2-75.2); Absolute Immature Granulocytes 0.2 10^3/uL (0-0.05); Absolute Lymphocytes 0.8 10^3/uL (1.2-3.4); Absolute Monocytes 0.4 10^3/uL (0.1-0.6); Absolute Neutrophils 14.8 10^3/uL (1.4-6.5); Hematocrit 37.4 % (37.0-47.0); Mean Corp Hgb Conc. 32.1 g/dL (33.0-37.0); Mean Corpuscular Hgb 19.5 pg (27.0-31.0); Mean Corpuscular Volume 60.9 fL (81.0-99.0); Nucleated Red Blood Cells % 0.1 %; Platelet Count 467 10^3/uL (130-400); Red Blood Cell Count 6.14 10^6/uL (4.20-5.40); Red Cell Dist. Width 18.9 % (11.5-14.5); White Blood Cell Count 16.2 10^3/uL (4.8-10.8)
[2024-03-23] MEDS: ZOFRAN 4 MG IV ×2 (20:44→22:49)
[2024-03-23] MEDS: DILAUDID 0.25 MG IV (20:47)
[2024-03-23] MEDS: LR 1000 IV (20:53)
[2024-03-23 20:56] LABS: ALT (SGPT) 43 U/L (0-35); AST (SGOT) 36 U/L (14-36); Albumin 4.7 g/dl (3.5-5.0); Alkaline Phosphatase 85 U/L (38-126); Blood Urea Nitrogen 14 mg/dl (7-17); Calcium 11.4 mg/dl (8.4-10.2); Carbon Dioxide 29 mmol/L (22-30); Chloride 97 mmol/L (98-107); Estimated Creatinine Clearance 70 ml/min; Glucose 132 mg/dl (70-99); Potassium 4.4 mmol/L (3.5-5.1); Sodium 137 mmol/L (135-145); eGFR > 60.00
[2024-03-23 20:57] LABS: Urine Albumin 2+ (Neg - Trace); Urine Bilirubin 2+ (Negative); Urine Character Clear (Clear); Urine Color Yellow; Urine Glucose Negative (Negative); Urine Ketone 3+ (Negative); Urine Leukocyte 1+ (Negative); Urine Nitrite Negative (Negative); Urine Occult Blood Negative (Negative); Urine Specific Gravity 1.025 (<1.030); Urine Urobilinogen 2+ (Neg - 1+)
[2024-03-23 21:01] VITALS: BP 111/75
[2024-03-23 21:14] LABS: Direct Bilirubin 0.5 mg/dl (0.0-0.4)
[2024-03-23 21:34] LABS: Urine Bacteria Few (Negative); Urine Mucus Moderate; Urine Red Blood Cell 0-2 /HPF (0-2); Urine Squamous Cell 0-2 /LPF (Few)
[2024-03-23 22:00] VITALS: BP 114/62
[2024-03-23 23:09] VITALS: BP 110/79
[2024-03-24] VITALS (7 sets, daily range): BP systolic 95–135; BP diastolic 55–85; BMI 23.4
--- NOTE | 2024-03-24 00:07 | HPS.HSE ---
Family Physician
-
Family Physician: Reinaldo Romero
Chief Complaint
-
Abdominal pain
History of Present Illness
This is a 73-year-old female with past medical history significant for hyperlipidemia, thalassemia minor, history of cholecystectomy and hysterectomy as well as ovarian resection who was recently admitted with small bowel obstruction comes in with
recurrent abdominal discomfort and distention.
Patient was admitted and recently discharged about 2 days ago for small bowel obstruction. She was initially managed conservatively with NG tube decompression. She did not improve and was taken to the OR on March 15 where she had a laparoscopic
lysis of adhesions and was found to have a transition point in the ileum secondary to small bowel adhesions to the omentum. After surgery she did improving off and the diet was advanced. She was having bowel movement and was able to be discharged.
Patient reported having bowel movement and passing gas after discharge. However within the last 24 hours she reported that she has had decrease in the amount of bowel movement as well as in the amount of gas she is passing. She also complained of
some abdominal discomfort and stated that she just does not feel quite right. She did talk to the surgical spine clinic and she was referred to the emergency department. She denied any nausea or vomiting at home but she did have 1 episode of
vomiting prior to CT scan. She reports the abdomen is less firm now compared to home. She was compliant with the dietary instructions and medications.
In the emergency department today she was afebrile blood pressure was 111/75 with a pulse of 99 satting 96% on room air. She had leukocytosis to 16,000 on CBC otherwise unremarkable. Electrolytes BUN is stable. Slight bilirubin elevation. UA
negative.
CT of the abdomen again shows small bowel obstruction with a transition zone in the mid abdomen and probable mid ileum. Complete obstruction cannot be excluded without oral contrast.
Medical History
Past Medical History
Past Medical History: Reports Hypercholesterolemia
Past Surgical History: Reports Cholecystectomy, Gynocological (Hysterectomy) and Other (Small bowel obstruction status post adhesiolysis)
Social History
Tobacco: Non-smoker
Alcohol: None
Drug: None
Personal:
Living: With Family
Employment: Retired
Family History
Family History: Not pertinent
Allergies / Home Medications
Allergies reflects when Allergies were last updated in [facility].
Home Medications with original date entered in [facility]
Allergy/Medication List:
Allergies
Allergy/AdvReac Type Severity Reaction Status Date / Time
Sulfa (Sulfonamide Allergy Rash Verified 03/13/24 08:58
Antibiotics)
Home Medications
biotin 10,000 mcg chewable tablet (Hair, Skin and Nails (biotin)) 10,000 mcg PO DAILY Supplement 03/13/24
cholecalciferol (vitamin D3) 25 mcg (1,000 unit) tablet (Vitamin D3) 25 mcg PO HS Supplement 03/13/24
docusate sodium 100 mg capsule 200 mg PO DAILYPRN PRN constipation 03/13/24
polyethylene glycol 3350 17 gram oral powder packet (Miralax) 8.5 g PO DAILYPRN PRN constipation 03/13/24
rosuvastatin 5 mg tablet 5 mg PO DAILY High Cholesterol 03/13/24
ferrous sulfate 325 mg (65 mg iron) tablet 325 mg PO DAILY anemia #30 tabs 03/18/24
Review of Systems
-
History Source: Patient
Constitutional: Reports No Symptoms
EENT: Reports No Symptoms
Respiratory: Reports No Symptoms
Cardiac: Reports No Symptoms
Abdomen/GI: Reports Abdominal Pain
: Reports No Symptoms
Musculoskeletal: Reports No Symptoms
Neurological: Reports No Symptoms
Endocrine: Reports No Symptoms
Hematologic/Lymphatic: Reports No Symptoms
Psych: Reports No Symptoms
Physical Exam
Vital Signs
Vital Signs
Temp Pulse Resp BP Pulse Ox
98.4 F 99 16 111/75 96
03/23/24 17:39 03/23/24 17:39 03/23/24 17:39 03/23/24 21:01 03/23/24 21:31
Physical Exam
General: No Apparent Distress
HEENT: NormoCephalic, Anicteric, Moist mucous membranes and Atraumatic
Respiratory: Clear
Cardiac: S1/S2 and Regular Rhythm
Breast: Deferred by me
GI: Normal Bowel Sounds (hyperactive) and Distended
Rectal: Deferred by Provider
Genito-urinary: Deferred by me
Musculoskeletal: No Clubbing, No Cyanosis and No Edema
Skin: Warm
Neuro: AO x 3 and Nonfocal/grossly intact
Hematologic/Lymphatic: No Lymphadenopathy
Psych: Calm
Laboratory Results
-
03/23/24 20:32
03/23/24 20:32
Laboratory Results
Total Bilirubin 2.0 mg/dl (0.2-1.3) H 03/23/24 20:32
AST 36 U/L (14-36) 03/23/24 20:32
ALT 43 U/L (0-35) H 03/23/24 20:32
Alkaline Phosphatase 85 U/L (38-126) 03/23/24 20:32
Data Reviewed
-
CT Scan: Report Reviewed by me
Lab Data: Labs Reviewed by me
Old Records: Reviewed
Impression/Plan
-
IMPRESSION:
73-year-old with recurrent SBO. She was just discharged after being found to have a small bowel obstruction initially managed conservatively but ultimately requiring surgical adhesiolysis (done laparoscopically). She was found to have mid ileal
transition point at the time of surgery. CT scan today again shows a mid abdominal likely ileal transition point. She is currently slightly uncomfortable but denies nausea vomiting oral abdominal pain. She has had no fevers or chills. She has
been having mild hypoxia since her last surgery. I suspect atelectasis.
PLAN:
SBO - Recurrent SBO
- admit to med/surg
- low threshold for NG tube, pending surgical input
- NPO, IV fluids, antiemetics and pain control
- surgery consult
DVT PPX - lovenox sq
Code status - Full Code
--- NOTE | 2024-03-24 02:40 | PTCARENOTE ---
Pt arrive to [facility] at 0205 from the ED. Pt arrived on stretcher and walked to bathroom from stretcher to have a BM. Pt walked back to bed and a full head to toe was assessed. Admission questions answered. Bed locked and in lowest position. Pt
oriented to room and call gonzalez. Care ongoing.
[2024-03-24] MEDS: LR 1000 IV ×3 (02:46→23:43)
[2024-03-24 05:57] LABS: Hematocrit 30.2 % (37.0-47.0); Hemoglobin 9.7 g/dL (12.0-16.0); Mean Corp Hgb Conc. 32.1 g/dL (33.0-37.0); Mean Corpuscular Hgb 19.8 pg (27.0-31.0); Mean Corpuscular Volume 61.8 fL (81.0-99.0); Mean Platelet Volume 10.5 fL (7.4-10.4); Platelet Count 359 10^3/uL (130-400); Red Blood Cell Count 4.89 10^6/uL (4.20-5.40); Red Cell Dist. Width 17.5 % (11.5-14.5)
[2024-03-24 06:16] LABS: Blood Urea Nitrogen 14 mg/dl (7-17); Calcium 9.3 mg/dl (8.4-10.2); Carbon Dioxide 27 mmol/L (22-30); Chloride 100 mmol/L (98-107); Estimated Creatinine Clearance 70 ml/min; Glucose 99 mg/dl (70-99); Potassium 3.8 mmol/L (3.5-5.1); Sodium 136 mmol/L (135-145); eGFR > 60.00
--- NOTE | 2024-03-24 09:34 | CON.GS ---
Consultation
-
Reason for Consultation: SBO
Medical History
-
Chief Complaint: Abdominal pain with n/v
History of Present Illness:
73 yo female recently known to our surgical service with hospitalization 03/13/2024 through 03/19/2024. She underwent laparoscopic assisted lysis of adhesions on 03/15/2024 with operative findings identifying a dense adhesion along the prior midline
incision scar, transition point in the ileum secondary to small bowel adhesions to omentum. Mini laparotomy to assure bowel integrity and complete lysis. No serosal tears or enterotomies. Postoperative recovery was unremarkable and she had full
return of GI function including multiple bowel movements and tolerating a low residue diet.
Patient states that her first few days at home were unremarkable and she continued to adhere to low residue foods with smaller portion sizes. Thursday she began feeling recurrent abdominal bloating and distention that was mild or moderate. It
increased in severity into Thursday throughout the day with worsening abdominal pain and she was feeling very tensely distended. This led to nausea and vomiting and referral for emergency department evaluation.
This a.m. she reports a significant improvement with relief of her prior nausea. No recurrent vomiting. She has been planning flatus regularly and has had multiple loose bowel movements. Her distention is subsiding. No residual abdominal pain
Past Medical History
Past Medical History: Hypercholesterolemia and Other (thalassemia minor)
Past Surgical History: Appendectomy (at time of right oophorectomy), Cholecystectomy and Gynecological (right oophorectomy, subsequent SHAUNA)
Social History
Tobacco: Non-Smoker
Alcohol: None
Personal:
Living: With Family
Family History
Family History: Reviewed & Not Pertinent
Allergies / Home Medications
Allergy/AdvReac Type Severity Reaction Status Date / Time
Sulfa (Sulfonamide Allergy Rash Verified 03/13/24 08:58
Antibiotics)
�Medication �Instructions �Recorded �Confirmed �Type
biotin 10,000 mcg chewable tablet 10,000 mcg PO DAILY Supplement 03/13/24 03/13/24 History
(Hair, Skin and Nails (biotin))
cholecalciferol (vitamin D3) 25 25 mcg PO HS Supplement 03/13/24 03/13/24 History
mcg (1,000 unit) tablet (Vitamin
D3)
docusate sodium 100 mg capsule 200 mg PO DAILYPRN PRN constipation 03/13/24 03/13/24 History
polyethylene glycol 3350 17 gram 8.5 g PO DAILYPRN PRN constipation 03/13/24 03/13/24 History
oral powder packet (Miralax)
rosuvastatin 5 mg tablet 5 mg PO DAILY High Cholesterol 03/13/24 03/13/24 History
ferrous sulfate 325 mg (65 mg 325 mg PO DAILY anemia #30 tabs 03/18/24 Rx
iron) tablet
Review of Systems
-
History Source: Patient
All other systems: Negative unless noted
A 10 point review of systems was completed, and was negative except as per HPI.
Physical Exam
Vital Signs
Temp Pulse Resp BP Pulse Ox
98.7 F 74 16 105/61 97
03/24/24 07:35 03/24/24 07:35 03/24/24 07:35 03/24/24 07:35 03/24/24 07:35
03/23/24 03/24/24 03/25/24
06:59 06:59 06:59
Actual Weight 59.931 kg
Body Mass Index (BMI) 23.4
Lab Results
03/24/24 05:26
03/24/24 05:26
WBC 15.0 10^3/uL (4.8-10.8) H 03/24/24 05:26
Hgb 9.7 g/dL (12.0-16.0) L 03/24/24 05:26
Hct 30.2 % (37.0-47.0) L 03/24/24 05:26
Plt Count 359 10^3/uL (130-400) D 03/24/24 05:26
Abs Immat Gran (auto) 0.2 10^3/uL (0-0.05) H 03/23/24 20:32
Neutrophils % 91.5 % (42.2-75.2) H 03/23/24 20:32
Physical Exam
General: Well Developed, Well Nourished, No Apparent Distress and Comfortable
HEENT: Normocephalic, Anicteric and Moist Mucous Membranes
Respiratory: Non Labored Respirations
GI: Soft, Tender (Slight tenderness on palpation. No rebound, no rigidity, no guarding), Distended (Mildly distended, but not tense. Tympany on percussion throughout. No percussion tenderness.) and Incisions (Recent surgical sites with
Steri-Strips. No open wounds, no drainage, no erythema. No significant soft tissue swelling or induration.)
Skin: Warm
Neuro: AO x 3
Psych: Calm
Data Reviewed
-
CT Scan: Image Personally Visualized and interpreted, Discussed with Patient and Discussed with Family
Labs: Labs Reviewed by me and Discussed with Patient
Assessment / Plan
-
Assessment: Patient is a 73-year-old female returning/readmitted with early postoperative small bowel obstruction. Transition point identified in mid ileum with significant proximal small bowel and gastric distention.
No clinical nor radiographic signs of immediate bowel compromise or threat such as ischemia, pneumatosis, closed-loop obstruction.
Patient with significant clinical improvement with bowel rest overnight and returning GI function with numerous loose bowel movements. Abdominal examination still mildly distended and tympanitic but not tense and there is no tenderness.
Plan: Continue with supportive care, no indications for immediate surgical intervention.
Maintain bowel rest, can avoid NG tube insertion at this point given clinical and subjective improvement.
If there is return of worsening obstructive symptoms then we discussed indications for NG tube decompression.
Continue IV fluid hydration
Will likely obtain a small bowel follow-through study pending clinical course to evaluate for degree of possible partial SBO.
Discussed with patient's daughter as well via phone call, Xochitl Kelly; this is [phone]
--- NOTE | 2024-03-24 09:53 | CM ---
Reviewed the chart notes and spoke with the patient at the bedside. Patient was recently hospitalized at (03/13-03/19) for SBO. The patient resides with her spouse in a one story home with three steps to enter. The patient reports no DME/VN/SNF.
The patient confirmed her [facility] of choice [facility] and PCP is Reinaldo Romero. CM continues to be available to patient/family and is monitoring medical plan for needs at discharge.
Plan: Discharge to home when medically stable. No needs identified at this time.
--- NOTE | 2024-03-24 14:45 | W.PN.UPDATE ---
Update Note
Progress Note Update
H&P performed at 0007 today. I have reviewed the patient's chart and completion. I have independently evaluated the patient at the bedside this morning.
73-year-old female with recurrent SBO s/p lysis of adhesions, HLD, thalassemia minor, H/O cholecystectomy, H/O hysterectomy and ovarian resection that presented to the ED 2 days after being discharged for SBO with recurrence of SBO. Was made n.p.o.
at the time and started on IV fluids and analgesia. Prior to evaluation this morning she began to pass flatus and stool, with improvement of her abdomen distention and pain. Evaluated by surgery who recommended lower GI series and continued bowel
rest for now. Has remained hemodynamically stable and afebrile.
SBO, recurrent and likely secondary to adhesive disease. Seems to be self resolving. Will maintain bowel rest as per surgery's recommendations and monitor with serial abdomen exams. Consider trial of diet in the morning. Follow-up lower GI
series. Continue IV fluids. If signs of worsening distention, nausea and vomiting will need NGT placement with intermittent low wall suctioning.
Full code
Likely discharge in 24 to 48 hours if continue to improve
Texted nursing and pharmacy about completing med rec
[2024-03-24] MEDS: LOVENOX 40 MG SC (17:21)
[2024-03-25 05:36] LABS: % Basophils 0.5 % (0-2); % Eosinophils 3.8 % (0-6); % Immature Granulocytes 0.8 % (0-0.5); % Monocytes 6.9 % (1.7-9.3); Absolute Eosinophils 0.3 10^3/uL (0-0.7); Absolute Immature Granulocytes 0.1 10^3/uL (0-0.05); Absolute Lymphocytes 1.7 10^3/uL (1.2-3.4); Absolute Monocytes 0.5 10^3/uL (0.1-0.6); Absolute Neutrophils 5.1 10^3/uL (1.4-6.5); Hematocrit 27.7 % (37.0-47.0); Mean Corp Hgb Conc. 32.5 g/dL (33.0-37.0); Mean Corpuscular Volume 61.6 fL (81.0-99.0); Nucleated Red Blood Cells % 0 %; Platelet Count 320 10^3/uL (130-400); Red Cell Dist. Width 17.5 % (11.5-14.5); White Blood Cell Count 7.7 10^3/uL (4.8-10.8)
[2024-03-25 06:00] LABS: Blood Urea Nitrogen 11 mg/dl (7-17); Calcium 8.3 mg/dl (8.4-10.2); Carbon Dioxide 25 mmol/L (22-30); Chloride 105 mmol/L (98-107); Estimated Creatinine Clearance 70 ml/min; Glucose 78 mg/dl (70-99); Potassium 3.8 mmol/L (3.5-5.1); Sodium 137 mmol/L (135-145); eGFR > 60.00
--- NOTE | 2024-03-25 07:30 | W.PN.GS2 ---
Addendum entered and electronically signed by Rohit Garcia MD 03/25/24 07:46:
Patient seen and examined. Agree with assessment as documented below.
Feels significantly improved. Denies any abdominal pain. Denies nausea or vomiting. Passed multiple loose stools yesterday and continues to pass flatus. Afebrile.
Gen: NAD
Abd: soft, NT, minimal distension, non-peritoneal, incisions c/d/i - no erythema, ecchymosis or drainage
Labs, CT scan imaging, and x-rays were reviewed
Patient is a 73-year-old female returning/readmitted with early postoperative small bowel obstruction.
CT with Transition point identified in mid ileum with significant proximal small bowel and gastric distention. No clinical nor radiographic signs of immediate bowel compromise or threat such as ischemia, pneumatosis, closed-loop obstruction.
Patient with significant clinical improvement with bowel rest overnight and returning GI function with numerous loose bowel movements. Abdominal examination still mildly distended and tympanitic but not tense and there is no tenderness.
Persistent narrowing at previously lysed area, not completely obstructed. Difficult to tell if this area will recover and soften with time. If unable to will need repeat exploration and small bowel resection at this area. During her operative
exploration this area was soft and contents did move easily from proximal to distal through this area. Given her rapid clinical improvement we will hold on operative intervention at this time. Plan for SBFT today to better gauge the degree of
narrowing and contrast transit time through this area. She may just need more time for this to wall settle out. All questions answered. Will call daughter and update with any questions.
Plan:
-- Small bowel follow-through study today
-- NPO for bowel rest
-- Continue IV fluid hydration
Original Note:
Today's Communication / Plan
-
SBFT study
Assessment / Plan
-
Patient is a 73-year-old female returning/readmitted with early postoperative small bowel obstruction.
CT with Transition point identified in mid ileum with significant proximal small bowel and gastric distention. No clinical nor radiographic signs of immediate bowel compromise or threat such as ischemia, pneumatosis, closed-loop obstruction.
Patient with significant clinical improvement with bowel rest overnight and returning GI function with numerous loose bowel movements. Abdominal examination still mildly distended and tympanitic but not tense and there is no tenderness.
Plan:
Continue with supportive care, no indications for immediate surgical intervention.
NPO for bowel rest
Continue IV fluid hydration
Will obtain a small bowel follow-through study today in further evaluation
Subjective Data
-
Date of Service: March 25, 2024
Patient seen and examined at bedside with Dr. Garcia. Passing flatus and stools and starting to feel relief in discomfort. Denies n/v.
Objective Data
-
Intake and Output
03/24/24 03/25/24 03/26/24
06:59 06:59 06:59
Intake Total 1350 / 1350
Balance 1350 / 1350
Intake:
Oral fluids 150 / 150
IV fluids (Total) 1200 / 1200
Other:
Number of approximated MODERATE 4
amounts of urine
How many times incontinent 2
MODERATE amount urine
Number of unmeasured liquid
stools
Rectum 3
Vital Signs
Temp Pulse Resp BP Pulse Ox
98.2 F 65 18 110/55 96
03/24/24 23:50 03/24/24 23:50 03/24/24 23:50 03/24/24 23:50 03/24/24 23:50
Lab Results
03/25/24 05:04
03/25/24 05:04
Calcium 8.3 mg/dl (8.4-10.2) L 03/25/24 05:04
Total Bilirubin 2.0 mg/dl (0.2-1.3) H 03/23/24 20:32
Direct Bilirubin 0.5 mg/dl (0.0-0.4) H 03/23/24 20:32
AST 36 U/L (14-36) 03/23/24 20:32
ALT 43 U/L (0-35) H 03/23/24 20:32
Alkaline Phosphatase 85 U/L (38-126) 03/23/24 20:32
Total Protein 8.0 g/dl (6.3-8.2) 03/23/24 20:
Albumin 4.7 g/dl (3.5-5.0) 03/23/24 20:32
Physical Exam
-
Gen; NAD
Abd: soft, NT, ND, non-peritoneal, incisions c/d/i - no erythema, ecchymosis or drainage
Patient has a carter catheter: No
Patient has a central line: No
[2024-03-25 07:45] VITALS: BP 119/51
--- NOTE | 2024-03-25 07:48 | W.PN.UPDATE ---
Update Note
Progress Note Update
Xochitl Pereira:
[2024-03-25] MEDS: LR IV ×2 (11:06→20:49)
--- NOTE | 2024-03-25 13:17 | W.PN.HOSP.TC ---
Today's Communication/Plan
-
CLD for now
Advance diet per surgery
Serial abdomen exams
Assessment / Plan
Assessment / Plan
#Recurrent SBO
-Recent hospitalization for similar issue and had lysis of adhesions
-Significant intra-abdominal surgical history previously
-Initial CT scan with transition zone in mid abdomen near mid ileum
-Day 1 of hospitalization developed flatus and spontaneous loose stools
-Had lower GI series today without signs of obstruction
-Was started on clear liquids today by surgery
-Advance diet at surgery's discretion
-Serial abdomen exams
#Dyslipidemia
-No known ASCVD history
-Home medications include moderate intensity statin
#Thalassemia minor
-Chronically low MCV, hemoglobin adequate
-Home medications include daily ferrous sulfate
#H/O cholecystectomy
#H/O hysterectomy with ovarian resection
DVT prophylaxis: Lovenox
CODE STATUS: Full code
Diet: CLD
Anticipated Discharge: 24 - 48 hours
Subjective/Interval History
-
Date of Service: March 25, 2024
Seen and examined at bedside. No acute events. AFVSS as of this morning.
Denies any abdomen issues this morning
Lower GI series without signs of obstruction
Objective Data
-
Labs:
Laboratory Results
03/25/24
05:04
WBC 7.7
Hgb 9.0 L
Hct 27.7 L
Plt Count 320
Sodium 137
Potassium 3.8
Chloride 105
Carbon Dioxide 25
BUN 11
Creatinine 0.5 L
Glucose 78
Calcium 8.3 L
Vital Signs:
Vital Signs
Temp Pulse Resp BP Pulse Ox
98.2 F 64 18 119/51 96
03/25/24 07:45 03/25/24 07:45 03/25/24 07:45 03/25/24 07:45 03/25/24 07:49
I&O
03/24/24 03/25/24 03/26/24
06:59 06:59 06:59
Intake Total 1350 / 1350
Balance 1350 / 1350
Review of Systems
-
History Source: Patient
All other systems: Reviewed and negative
Physical Exam
-
General: Well Developed, Well Nourished and No Apparent Distress
HEENT: Normocephalic, Atraumatic and Moist Mucous Membranes
Respiratory: Clear to Auscultation and Non Labored Respirations
Cardiac: Regular Rhythm and S1/S2; Negative Murmur, Rub or Gallop
GI: Soft, Nontender, Nondistended and Normal Bowel Sounds
Musculoskeletal: No Clubbing, No Cyanosis and No Edema
Skin: Warm and Dry; Negative Rash
Neuro: AO x 3 and Nonfocal/Grossly Intact
--- NOTE | 2024-03-25 13:23 | CM ---
Reviewed the chart notes and spoke with the patient at the bedside. Patient's diet advanced to clears. CM continues to be available to patient/family and is monitoring medical plan for needs at discharge.
Plan: Discharge to home when medically stable. No needs anticipated at this time.
[2024-03-25 15:50] VITALS: BP 118/68
[2024-03-25] MEDS: LOVENOX 40 MG SC (17:15)
[2024-03-25 23:00] VITALS: BP 105/50
[2024-03-26] MEDS: LR IV (06:11)
[2024-03-26 07:15] VITALS: BP 107/58
--- NOTE | 2024-03-26 08:26 | W.PN.GS2 ---
Today's Communication / Plan
-
-- LRD
Assessment / Plan
-
Patient is a 73-year-old female returning/readmitted with early postoperative small bowel obstruction.
CT with Transition point identified in mid ileum with significant proximal small bowel and gastric distention. No clinical nor radiographic signs of immediate bowel compromise or threat such as ischemia, pneumatosis, closed-loop obstruction.
Patient with significant clinical improvement with bowel rest overnight and returning GI function with numerous loose bowel movements. Abdominal examination still mildly distended and tympanitic but not tense and there is no tenderness.
Persistent narrowing at previously lysed area, not completely obstructed. Difficult to tell if this area will recover and soften with time. If unable to will need repeat exploration and small bowel resection at this area. During her operative
exploration this area was soft and contents did move easily from proximal to distal through this area. Given her rapid clinical improvement we will hold on operative intervention at this time. Plan for SBFT today to better gauge the degree of
narrowing and contrast transit time through this area. She may just need more time for this to wall settle out. All questions answered. Will call daughter and update with any questions.
Plan:
-- LRD
-- Pain control: Tylenol, Toradol
-- HLIV
Subjective Data
-
Date of Service: March 26, 2024
No complaints. Feels good. No abdominal pain. No nausea or vomiting. Continues to pass flatus and stool.
Objective Data
-
Intake and Output
03/25/24 03/26/24 03/27/24
06:59 06:59 06:59
Intake Total 1350 / 1350 1560 / 1560
Balance 1350 / 1350 1560 / 1560
Intake:
Oral fluids 150 / 150 1560 / 1560
IV fluids (Total) 1200 / 1200
Other:
Number of approximated MODERATE 4 2
amounts of urine
How many times incontinent 3
MODERATE amount urine
Number of unmeasured liquid
stools
Rectum 3
Vital Signs
Temp Pulse Resp BP Pulse Ox
98.7 F 66 16 107/58 98
03/26/24 07:15 03/26/24 07:15 03/26/24 07:15 03/26/24 07:15 03/26/24 07:15
Calcium 8.3 mg/dl (8.4-10.2) L 03/25/24 05:04
Total Bilirubin 2.0 mg/dl (0.2-1.3) H 03/23/24 20:32
Direct Bilirubin 0.5 mg/dl (0.0-0.4) H 03/23/24 20:32
AST 36 U/L (14-36) 03/23/24 20:32
ALT 43 U/L (0-35) H 03/23/24 20:32
Alkaline Phosphatase 85 U/L (38-126) 03/23/24 20:32
Total Protein 8.0 g/dl (6.3-8.2) 03/23/24 20:32
Albumin 4.7 g/dl (3.5-5.0) 03/23/24 20:32
Physical Exam
-
Gen: NAD
Abd: soft, NT, minimal distension, non-peritoneal, incisions c/d/i - no erythema, ecchymosis, or drainage
Patient has a carter catheter: No
Patient has a central line: No
[2024-03-26 08:50] LABS: Blood Urea Nitrogen 7 mg/dl (7-17); Calcium 8.8 mg/dl (8.4-10.2); Carbon Dioxide 29 mmol/L (22-30); Chloride 103 mmol/L (98-107); Estimated Creatinine Clearance 70 ml/min; Glucose 97 mg/dl (70-99); Potassium 3.6 mmol/L (3.5-5.1); Sodium 136 mmol/L (135-145); eGFR > 60.00
[2024-03-26 08:55] LABS: Hematocrit 30.1 % (37.0-47.0); Hemoglobin 9.5 g/dL (12.0-16.0); Mean Corp Hgb Conc. 31.6 g/dL (33.0-37.0); Mean Corpuscular Hgb 19.9 pg (27.0-31.0); Platelet Count 320 10^3/uL (130-400); Red Blood Cell Count 4.78 10^6/uL (4.20-5.40); Red Cell Dist. Width 17.6 % (11.5-14.5); White Blood Cell Count 6.2 10^3/uL (4.8-10.8)
[2024-03-26 10:45] LABS: % Basophils 0.3 % (0-2); % Lymphocytes 23.7 % (20.5-51.1); % Monocytes 5.8 % (1.7-9.3); % Neutrophils 66.2 % (42.2-75.2); Absolute Eosinophils 0.2 10^3/uL (0-0.7); Absolute Immature Granulocytes 0.1 10^3/uL (0-0.05); Absolute Lymphocytes 1.5 10^3/uL (1.2-3.4); Absolute Monocytes 0.4 10^3/uL (0.1-0.6); Absolute Neutrophils 4.1 10^3/uL (1.4-6.5); Nucleated Red Blood Cells % 0 %
--- NOTE | 2024-03-26 11:36 | W.PN.HOSP.TC ---
Today's Communication/Plan
-
Monitor on low residue diet
Possible discharge tomorrow if tolerating
Serial abdomen exams
Assessment / Plan
Assessment / Plan
#Recurrent SBO
-Recent hospitalization for similar issue and had lysis of adhesions
-Significant intra-abdominal surgical history previously
-Initial CT scan with transition zone in mid abdomen near mid ileum
-Day 1 of hospitalization developed flatus and spontaneous loose stools
-Had lower GI series today without signs of obstruction
-Advanced to low residue diet today
-Serial abdomen exams
#Dyslipidemia
-No known ASCVD history
-Home medications include moderate intensity statin
#Thalassemia minor
-Chronically low MCV, hemoglobin adequate
-Home medications include daily ferrous sulfate
#H/O cholecystectomy
#H/O hysterectomy with ovarian resection
DVT prophylaxis: Lovenox
CODE STATUS: Full code
Diet: Low residue
Anticipated Discharge: Within 24 hours
Subjective/Interval History
-
Date of Service: March 26, 2024
Seen and examined the bedside. No acute events reported overnight. AFVSS this morning
States she is still having bowel movements and passing flatus. Started back onto low residue diet today
Denies any new complaints. Plan to monitor through today with possible DC tomorrow
Objective Data
-
Labs:
Laboratory Results
03/26/24
08:19
WBC 6.2
Hgb 9.5 L
Hct 30.1 L
Plt Count 320
Sodium 136
Potassium 3.6
Chloride 103
Carbon Dioxide 29
BUN 7
Creatinine 0.5 L
Glucose 97
Calcium 8.8
Vital Signs:
Vital Signs
Temp Pulse Resp BP Pulse Ox
98.7 F 66 16 107/58 98
03/26/24 07:15 03/26/24 07:15 03/26/24 07:15 03/26/24 07:15 03/26/24 08:00
I&O
03/25/24 03/26/24 03/27/24
06:59 06:59 06:59
Intake Total 1350 / 1350 1560 / 1560
Balance 1350 / 1350 1560 / 1560
Review of Systems
-
History Source: Patient
All other systems: Reviewed and negative
Physical Exam
-
General: Well Developed, No Apparent Distress and Comfortable
HEENT: Normocephalic, Atraumatic and Moist Mucous Membranes
Respiratory: Clear to Auscultation and Non Labored Respirations
Cardiac: Regular Rhythm and S1/S2; Negative Murmur, Rub or Gallop
GI: Soft, Nontender, Normal Bowel Sounds and Distended (Mild, much improved)
Musculoskeletal: No Clubbing, No Cyanosis and No Edema
Skin: Warm, Dry and Normal Turgor; Negative Rash
Neuro: AO x 3 and Nonfocal/Grossly Intact
Psych: Calm
[2024-03-26 15:45] VITALS: BP 108/72
[2024-03-26] MEDS: LOVENOX 40 MG SC (17:16)
[2024-03-26 23:24] VITALS: BP 138/59
[2024-03-27 07:24] VITALS: BP 125/72
--- NOTE | 2024-03-27 09:13 | W.PN.GS2 ---
Today's Communication / Plan
-
-- LRD
-- Repeat abdominal X-ray
-- Pending above, DC today versus tomorrow
Assessment / Plan
-
Patient is a 73-year-old female returning/readmitted with early postoperative small bowel obstruction.
CT with Transition point identified in mid ileum with significant proximal small bowel and gastric distention. No clinical nor radiographic signs of immediate bowel compromise or threat such as ischemia, pneumatosis, closed-loop obstruction.
Patient with significant clinical and radiographic improvement. Tolertainf LRD.
Plan:
-- LRD
-- Repeat abdominal X-ray
-- Pain control: Tylenol, Toradol
-- Pending above, DC today versus tomorrow
Subjective Data
-
Date of Service: March 27, 2024
No complaints. Feels improved. Feels different from previously. Passing flatus. Passing small more formed stools. No nausea or vomiting. No increased abdominal pain or distention. Ambulating. Voiding.
Objective Data
-
Intake and Output
03/26/24 03/27/24 03/28/24
06:59 06:59 06:59
Intake Total 1560 / 1560 480 / 480
Balance 1560 / 1560 480 / 480
Intake:
Oral fluids 1560 / 1560 480 / 480
Other:
Number of approximated MODERATE 2 2
amounts of urine
How many times incontinent 3
MODERATE amount urine
Vital Signs
Temp Pulse Resp BP Pulse Ox
98.2 F 73 16 125/72 96
03/27/24 07:24 03/27/24 07:24 03/27/24 07:24 03/27/24 07:24 03/27/24 08:00
Lab Results
03/26/24 08:19
03/26/24 08:19
Calcium 8.8 mg/dl (8.4-10.2) 03/26/24 08:19
Total Bilirubin 2.0 mg/dl (0.2-1.3) H 03/23/24 20:32
Direct Bilirubin 0.5 mg/dl (0.0-0.4) H 03/23/24 20:32
AST 36 U/L (14-36) 03/23/24 20:32
ALT 43 U/L (0-35) H 03/23/24 20:32
Alkaline Phosphatase 85 U/L (38-126) 03/23/24 20:32
Total Protein 8.0 g/dl (6.3-8.2) 03/23/24 20:32
Albumin 4.7 g/dl (3.5-5.0) 03/23/24 20:32
Physical Exam
-
Gen: NAD
Abd: soft, NT, mild distension, non-peritoneal, incisions c/d/i - no erythema, ecchymosis or drainage
Patient has a carter catheter: No
Patient has a central line: No
--- NOTE | 2024-03-27 11:47 | W.PN.HOSP.TC ---
Today's Communication/Plan
-
Monitor to ensure she tolerates lunch
Discharge if no symptoms
OP surgical follow-up in 1 to 2 weeks
Assessment / Plan
Assessment / Plan
#Recurrent SBO
-Recent hospitalization for similar issue and had lysis of adhesions
-Significant intra-abdominal surgical history previously
-Initial CT scan with transition zone in mid abdomen near mid ileum
-Day 1 of hospitalization developed flatus and spontaneous loose stools
-Had lower GI series today without signs of obstruction
-Advanced to low residue diet today
-Serial abdomen exams
#Dyslipidemia
-No known ASCVD history
-Home medications include moderate intensity statin
#Thalassemia minor
-Chronically low MCV, hemoglobin adequate
-Home medications include daily ferrous sulfate
#H/O cholecystectomy
#H/O hysterectomy with ovarian resection
DVT prophylaxis: Lovenox
CODE STATUS: Full code
Diet: Low residue
Spoke with surgery about discharge
>30 minutes were utilized for discharge planning and preparation as well as arranging outpatient follow-up
Anticipated Discharge: Today
Subjective/Interval History
-
Date of Service: March 27, 2024
Seen and examined at the bedside. No acute vents overnight. AFVSS this morning
Continues to pass stool and flatus spontaneously. Tolerating full diet
Denies new complaints today. If she tolerates lunch she can be discharged
Objective Data
-
Vital Signs:
Vital Signs
Temp Pulse Resp BP Pulse Ox
98.2 F 73 16 125/72 96
03/27/24 07:24 03/27/24 07:24 03/27/24 07:24 03/27/24 07:24 03/27/24 08:00
I&O
03/26/24 03/27/24 03/28/24
06:59 06:59 06:59
Intake Total 1560 / 1560 480 / 480
Balance 156 / 156 480 / 480
Review of Systems
-
History Source: Patient
All other systems: Reviewed and negative
Physical Exam
-
General: Well Developed, No Apparent Distress and Comfortable
HEENT: Normocephalic, Atraumatic and Moist Mucous Membranes
Respiratory: Clear to Auscultation and Non Labored Respirations
Cardiac: Regular Rhythm and S1/S2
GI: Soft, Nontender, Normal Bowel Sounds and Distended (Minimal)
Musculoskeletal: No Clubbing, No Cyanosis and No Edema
Skin: Warm and Dry; Negative Rash or Normal Turgor
Neuro: AO x 3 and Nonfocal/Grossly Intact
Psych: Calm
--- NOTE | 2024-03-27 12:14 | CHAP ---
Grazyna was hopeful that she'll be discharged soon. We said prayers thanking God for her good progress and for continued recovery. Emotional and spiritual support provided.
--- NOTE | 2024-03-27 12:39 | W.DCSUMMARY ---
Discharge Summary
Discharge Data
Date of Admission: 03/24/24
Date of Discharge: 03/27/24
-
Pending Results: No
Hospital Course
Discharging Physician : Akash Marie DO
Disposition : Home
Principal Discharge diagnosis : Recurrent small bowel obstruction
Chronic Discharge diagnosis : Thalassemia minor, dyslipidemia, H/O recurrent SBO s/p lysis of adhesions
Hospital Course : 73-year-old female that presented to the hospital with worsening abdomen pain and distention accompanied with inability to pass stool or flatus. Initial imaging in the ED showed signs of small bowel obstruction with transition
point near the mid ileum. She was made n.p.o., no NGT placed due to lack of symptoms of nausea or vomiting. Surgery was consulted for evaluation and assisted in advancing her diet. During bowel rest she spontaneously developed recurrence of
flatus and bowel movements. Was started on clear liquid diet which was advanced slowly over multiple days back to full low residue diet. Once tolerating full diet without recurrent symptoms she was deemed stable for discharge. Had a lower GI
series that did not show any signs of residual small bowel obstruction here. Final x-ray prior to discharge did so some signs of bowel loop dilation however patient symptomatically was improved and still having normal bowel function.
Important imaging findings :
CT abdomen/pelvis with IV and oral contrast (03/23/2024):
Abdomen and pelvis: There is a small hiatal hernia. The stomach is moderately distended. The liver, spleen, and pancreas are unremarkable. The gallbladder has been removed. The adrenal glands and kidneys are unremarkable. The abdominal aorta is
normal caliber. No significant lymphadenopathy is noted There are multiple distended loops of small bowel. The largest measures 4.7 cm in maximum diameter.. There is no bowel wall thickening. The transition point is in the mid abdomen seen best on
image 64 series 201. Distal to this, there are decompressed loops of bowel with associated mild stranding/inflammation possibly adhesions. There is moderate free fluid in the pelvis.. No free air is noted.
Lower GI series (03/25/2024):
FINDINGS: Preliminary image of the abdomen reveal some minimal oral contrast presumably from CT of March 23, 2024 in the left colon. Mild small bowel dilatation is seen in the left abdomen.The patient consumed nonionic contrast which readily
passed through the stomach into the duodenum and jejunum. The proximal small bowel is mildly dilated, distal small bowel within the limits of normal in caliber. Contrast reached the terminal ileum and cecum at approximately 40 minutes.
Abdomen x-ray (03/27/2024):
FINDINGS: There is contrast agent within collapsed caliber colon, which is likely from recent small bowel series. There are mildly to moderately dilated loops of small bowel present, measuring up to 4.8 cm in diameter. Findings could represent
residual partial small bowel obstruction versus small bowel ileus. Mild elevation of the left hemidiaphragm. Skin francisca project over the pelvis. Surgical clips in the right upper quadrant compatible with previous cholecystectomy
Procedure findings : No procedures occurred in hospital
Follow-up: Surgeon, in office within 1 to 2 weeks
Discharge Plan
-
Patient Disposition: Home (Routine Discharge)
Discharge Diagnosis/Procedures: Recurrent small bowel obstruction
Condition: Good
Diet: Low Fiber
Activity: No strenuous activity
Additional Activity: Do not lift over 15 lbs for another 1-2 weeks
Bathing Restrictions: OK to Shower
Blood Work: None required
Others Tests: None required
Activity Restrictions/Additional Instructions:
After discharge, if you develop recurrence of the inability to pass stool or flatus or severe abdomen pain then return to the emergency department for further assessment as it is possible your small bowel obstruction recurred once again
Follow-up with your family doctor within 1 to 2 weeks after discharge. Follow-up with your surgeon in their office within 1 to 2 weeks of discharge from the hospital
Instructions: Low-fiber diet
Referrals:
Reinaldo Romero MD [Family Provider] -
Rohit Garcia MD [Active] - in one to two weeks
Additional Discharge Medication Instructions: No medication changes made
Prescriptions:
Continued
polyethylene glycol 3350 [Miralax] 17 gram Powder In Packet
8.5 g PO DAILYPRN PRN (Reason: constipation)
docusate sodium 100 mg Capsule
200 mg PO DAILYPRN PRN (Reason: constipation)
rosuvastatin 5 mg Tablet
5 mg PO DAILY
cholecalciferol (vitamin D3) [Vitamin D3] 25 mcg (1,000 unit) Tablet
25 mcg PO HS
Hair, Skin and Nails (biotin) 10,000 mcg Tablet,Chewable
10,000 mcg PO DAILY
ferrous sulfate 325 mg (65 mg iron) tablet
325 mg PO DAILY Qty: 30 0RF
Discharge Orders:
Discharge Patient (As Directed); Ordered 03/27/24
Ordered By: Akash Marie
Discharge Date and Time
Print Language: BURKINAN
[2024-03-27 13:41] VITALS: BP 111/65
--- NOTE | 2024-03-27 14:08 | CM ---
Pt for dc today with no needs.
IMM signed.
== END 2024-03-27 13:45 | disposition home or self-care (01) | DRG 390 ==
LOC: 2 SOUTH 00:54
PROVIDERS: ADMITTING PHYSICIAN Internal Medicine; ATTENDING PHYSICIAN Internal Medicine; CONSULT PHYSICIAN Surgery; EMERGENCY PHYSICIAN Student in an Organized Health Care Education/Training Program; FAMILY PHYSICIAN Family Medicine
DX: K91.31 Postprocedural partial intestinal obstruction (principal); D56.3 Thalassemia minor; E78.00 Pure hypercholesterolemia, unspecified; Z90.710 Acquired absence of both cervix and uterus; Z90.49 Acquired absence of other specified parts of digestive tract; Z88.2 Allergy status to sulfonamides; Z79.899 Other long term (current) drug therapy
CPT/HCPCS: 74018; 74177; 74250; 80048; 80053; 81003; 81015; 82248; 85025; 85027; 87086; 96361; 96374; 96375; 96376; 99284; Q9967